=== PATIENT | female | born 1950 | race Caucasian/White ===

== ENCOUNTER 2022-08-28 06:50 | Emergency (ER) | payer MEDICARE, SELFPAY ==
[2022-08-28 06:50] VITALS: BP 148/85; PULSE 112; RESP 18; TEMP 36.4; O2SAT 95; BMI 23.9
[2022-08-28 07:39] LABS: Add Manual Diff / Slide Review NO; Basophils Absolute Auto 100 /uL (0-100); Basophils Percent Auto 0.7 % (0-2); Eosinophils Absolute Auto 0 /uL (0-450); Eosinophils Percent Auto 0.1 % (2-4); Hemoglobin 14.3 g/dL (12.0-16.0); Lymphocytes Absolute Auto 900 /uL (1100-4500); Lymphocytes Percent Auto 6.7 % (25-40); Mean Corpuscular HGB Conc 34.1 % (30-36); Mean Corpuscular Hemoglobin 30.4 PG (26-34); Monocytes Absolute Auto 800 /uL (0-900); Neutrophils Absolute Auto 11800 /uL (1500-7000); Neutrophils Percent Auto 86.5 % (50-75); Platelet Count 280 X10^3/uL (150-400); Red Blood Cell Count 4.72 X10^6/uL (4.0-5.2); Red Cell Distribution Width 14.8 % (11.6-14.8); White Blood Cell Count 13.6 X10^3/uL (4.5-11.0)
[2022-08-28 07:47] LABS: Alanine Aminotransferase 32 IU/L (<35); Albumin Globulin Ratio 0.9 (1.0-2.8); Alkaline Phosphatase 80 U/L (38-126); Aspartate Aminotransferase 40 IU/L (14-36); BUN Creatinine Ratio 23.9 (6-22); Bilirubin Total 0.4 mg/dL (0.2-1.3); Blood Urea Nitrogen 16 mg/dL (7-17); Carbon Dioxide 20 mmol/L (22-32); Chloride 101 mmol/L (98-107); Estimated Glomerular Filt Rate > 60 mL/min (>60); Globulin 3.4 g/dL (1.7-4.1); Glucose 111 mg/dL (80-110); Lipase 35 U/L (23-300); Sodium 133 mmol/L (137-145); Total Protein 6.4 g/dL (6.3-8.2)
[2022-08-28 07:57] LABS: HEMOLYSIS 17 (0-50)
[2022-08-28 07:59] LABS: Potassium 2.6 mmol/L (3.4-5.1)
--- NOTE | 2022-08-28 07:59 | ED_ITS ---
HPI - Fall General Chief Complaint: Fall Stated Complaint: GLF- back pain Time Seen by Provider: 08/28/22 07:59 Source: patient Mode of arrival: EMS Limitations: no limitations History of Present Illness HPI Narrative: This is a 71-year-old female who denies chronic medical issues. She states that she was stepping off a curb or step misstepped and fell backwards onto her left side. Patient states she fell to her side and not straight back. She denies hitting her head she denies neck or back pain. She describes pain in her SI joint/sacral area. She states that she stood at the scene with EMS which was not painful but she did not ambulate. She states it is painful but not significantly so. She has broken her tailbone before and was concerned she may have broken it again. She denies numbness, tingling or pain radiating down her legs. No loss of bowel or bladder control. She denies chest pain or shortness of breath, no nausea or vomiting. She notes she is had diarrhea for the past 2 weeks with no black or bloody stools. Patient denies surgeries, she has had a scope before. She states she is allergic to penicillin. Related Data Previous Rx's Medication Instructions Recorded oxycodone 5 mg tablet 5 mg PO Q6H PRN pain #10 tabs 08/28/22 potassium chloride 20 mEq 40 meq PO DAILY #4 tabs 08/28/22 tablet,extended release Allergies Allergy/AdvReac Type Severity Reaction Status Date / Time Penicillins Allergy Verified 08/28/22 06:50 Review of Systems Review of Systems ROS Unobtainable: All systems reviewed & are unremarkable except as noted in HPI and below Patient History Social History Smoking Status: Current every day smoker Smoking Status: Current every day smoker Substance Use Type: does not use Exam Narrative Exam Narrative: GEN: Patient appears in mild distress. HEAD: No evidence of trauma, no raccoon/Gonzalez sign. NECK: Nontender, painless range of motion, trachea midline Negative Nexus criteria, there is no midline line tenderness, distracting injury, altered mental status, neuro deficit, recent EtOH. EYES: PERRLA, EOMI ENT: External inspection normal, trachea is midline, Nares are clear, no septal hematoma, no dental or oral injury, airway is normal and with normal occlusion, No bony tenderness RESP: Chest is nontender and has symmetric movement, no ecchymosis, breath sounds are normal no crackles, wheezes or rales CVS: Heart sounds are normal, no murmur noted, No JVD. ABG/GI: Nontender, soft, normal bowel sounds, no distention, no organomegaly, pelvic rock is negative NEURO: Oriented AOx3, neuro is grossly intact, sensation and motor is normal all 4 extremities moving, cranial nerves II through XII are intact, GCS is 15 PSYCH: Normal mood and affect SKIN: Intact, warm and dry, no crepitus and without decubitus BACK: No CVA tenderness, no vertebral tenderness, no step-off's, no crepitus, patient does not have any clear reproducible pain for myself. She has full range of motion of her lower extremities, 5/5 muscle strength. EXT: Atraumatic, hips are nontender, no pedal edema, normal color and temperature, normal range of motion of extremities with normal tendon exam, 2+ pulses in all four extremities Initial Vital Signs Initial Vital Signs: Vital Signs Temperature 97.5 F L 08/28/22 06:50 Pulse Rate 112 H 08/28/22 06:50 Respiratory Rate 18 08/28/22 06:50 Blood Pressure 148/85 H 08/28/22 06:50 Pulse Oximetry 95 08/28/22 06:50 Oxygen Delivery Method 08/28/22 06:50 Scores GCS [place] coma scale eye opening: Spontaneous Wolf coma scale verbal response: Orientated Wolf coma scale motor response: Obey commands Wolf coma scale total score: 15 Nexus Score for C-Spine Focal Neurologic deficit present: No Midline spinal tenderness present: No Altered level of conciousness present: No Intoxication present: No Distracting Injury Present: No Nexus Criteria for C-spine: 0 Course Orders Ordered: Discontinued Medications Hydrocodone Bitart/Acetaminophen (Hydrocodone/Acet 5/325 Tablet) 1 tab PO NOW ONE Stop: 08/28/22 08:07 Last Admin: 08/28/22 08:12 Dose: 1 tab Documented By: MATIAS Ondansetron HCl (Ondansetron 4 Mg Odt) 4 mg PO NOW ONE Stop: 08/28/22 07:07 Last Admin: 08/28/22 08:11 Dose: Not Given Documented By: MATIAS Ondansetron HCl (Ondansetron 4 Mg/2 Ml Inj) 4 mg IV NOW ONE Stop: 08/28/22 07:07 Last Admin: 08/28/22 08:11 Dose: Not Given Documented By: MATIAS Potassium Chloride (Potassium Chloride 20 Meq Tab) 40 meq PO NOW ONE Stop: 08/28/22 08:00 Last Admin: 08/28/22 08:12 Dose: 40 meq Documented By: MATIAS Vital Signs Vital signs: Vital Signs - 8 hr 08/28/22 06:50 08/28/22 08:13 08/28/22 08:45 Temperature 97.5 F L Pulse Rate 112 H 96 H 97 H Respiratory Rate 18 20 Blood Pressure 148/85 H Pulse Oximetry 95 94 95 Oxygen Delivery Method Room Air 08/28/22 09:00 Temperature Pulse Rate 91 H Respiratory Rate 22 Blood Pressure Pulse Oximetry 94 Oxygen Delivery Method - Fall Lab Data Result diagrams: 08/28/22 07:05 08/28/22 07:05 Labs: Lab Results 08/28/22 08/28/22 Range/Units 07:05 07:05 WBC 13.6 H (4.5-11.0) X10^3/uL RBC 4.72 (4.0-5.2) X10^6/uL Hgb 14.3 (12.0-16.0) g/dL Hct 42.0 (36-46) % MCV 89.0 (80-100) fL MCH 30.4 (26-34) PG MCHC 34.1 (30-36) % RDW 14.8 (11.6-14.8) % Plt Count 280 (150-400) X10^3/uL Neut % (Auto) 86.5 H (50-75) % Lymph % (Auto) 6.7 L (25-40) % [place] % (Auto) 6.0 (3-14) % Eos % (Auto) 0.1 L (2-4) % Baso % (Auto) 0.7 (0-2) % Neut # (Auto) 37927 H (3789-0032) /uL Lymph # (Auto) 900 L (3138-2422) /uL [place] # (Auto) 800 (0-900) /uL Eos # (Auto) 0 (0-450) /uL Baso # (Auto) 100 (0-100) /uL Sodium 133 L (137-145) mmol/L Potassium 2.6 L* (3.4-5.1) mmol/L Chloride 101 (98-107) mmol/L Carbon Dioxide 20 L (22-32) mmol/L BUN 16 (7-17) mg/dL Creatinine 0.67 (0.52-1.04) mg/dL Estimated GFR > 60 (>60) mL/min BUN/Creatinine Ratio 23.9 H (6-22) Glucose 111 H (80-110) mg/dL Calcium 8.0 L (8.4-10.2) mg/dL Total Bilirubin 0.4 (0.2-1.3) mg/dL AST 40 H (14-36) IU/L ALT 32 (<35) IU/L Alkaline Phosphatase 80 (38-126) U/L Total Protein 6.4 (6.3-8.2) g/dL Albumin 3.0 L (3.5-5.0) g/dL Globulin 3.4 (1.7-4.1) g/dL Albumin/Globulin Ratio 0.9 L (1.0-2.8) Lipase 35 (23-300) U/L Imaging Data pelvic xray: Radiologist's Impression: [address] [address] XRay Report Signed Patient: Shirley Hearn MR#: [id number] : 1950 Acct:[id number] Age/Sex: 71 / F Date of Service: 08/28/22 Loc: ED Accession Number: [id number] ?? Procedure: XR pelvis 1-2V Ordering Provider: Anita Multani D.O. PROCEDURE:? XR PELVIS 1-2V ? INDICATIONS:? fell on bottom, right upper si pain ? TECHNIQUE:? 1 view(s) of the pelvis acquired.? ? COMPARISON:? None. ? FINDINGS:? ? Bones:? No fractures or dislocations.? No suspicious bony lesions.? ? Soft tissues:? Visualized bowel gas pattern is normal.? No suspicious soft tissue calcifications.? ? IMPRESSION:? No evidence acute bony abnormality of the pelvis. ? If clinical suspicion and/or symptoms persist, further assessment with repeat plain films, or advanced imaging (e.g., CT, MRI, or bone scan) may be helpful for further assessment. ? Dictated by: Harpreet Canales M.D. on 08/28/2022 at 8:47 ? ? Approved by: Harpreet Canales M.D. on 08/28/2022 at 8:48? sacrum xray: Radiologist's Impression: [address] [address] XRay Report Signed Patient: Shirley Hearn MR#: [id number] : 1950 Acct:[id number] Age/Sex: 71 / F Date of Service: 08/28/22 Loc: ED Accession Number: [id number] ?? Procedure: XR sacrum coccyx min 2V Ordering Provider: Anita Multani D.O. PROCEDURE:? XR SACRUM COCCYX MIN 2V ? INDICATIONS:? fell on bottom, right upper si pain ? TECHNIQUE:? 3 views of the sacrum and coccyx acquired.? ? COMPARISON:? None. ? FINDINGS:? ? Bones:? No fractures or dislocations.? No suspicious bony lesions.? ? Soft tissues:? Visualized bowel gas pattern is normal.? No suspicious soft tissue densities.? ? IMPRESSION:? No evidence of acute fracture of the sacrum and coccyx.? ? ? Dictated by: Harpreet Canales M.D. on 08/28/2022 at 8:46 ? ? Approved by: Harpreet Canales M.D. on 08/28/2022 at 8:47?? ECG Data Attestation: I personally reviewed and interpreted this ECG as follows: Prior ECG tracings: not available for review Interpretation: Sinus rhythm premature atrial complexes rate of 98 ME 184 QRS of 108 QTC 551. Patient appears to have atrial enlargement, Q-waves in 2 3 AVF.. No elevation or depression appreciated. No priors. MDM Narrative Medical decision making narrative: This is a 71-year-old female with ground level fall after missing a step. Her exam overall is reassuring but she does describe pain in the sacral region pelvic x-ray sacrum was ordered. Patient had labs obtained she is had chronic diarrhea no black or bloody stools no abdominal pain but was found have a potassium was 2.6 likely from her diarrhea, white count is 13.6, no other gerson ctrolyte or renal changes besides a slightly low. Patient and I discussed getting a stool sample to send for GI panel. Imaging shows no acute fracture. Patient ambulating in the department with walker. She is open to taking 1 home. Plan for Tylenol for pain, oxycodone as needed as needed. Discussed about doing a stool sample through primary care if persisting and 2 extra doses of potassium. Patient and family aware that diarrhea causes potassium loss. She was unable to give a sample here. Return precautions. Discharge Plan Departure Patient Disposition: Home Clinical Impression: Fall, Back pain, sacroiliac, Hypokalemia Activity Restrictions/Additional Instructions: Please follow-up for recheck if your symptoms are not improving over the next week. I would ask that you follow-up with her physician for recheck of your potassium level if your continuing to have diarrhea through the week. Your x-ray findings today are negative. You do have low potassium this is likely from your frequent diarrhea. I would recommend following up with your physician for GI panel. Please take an extra dose of potassium this evening. You may take Tylenol 1000 mg every 6 hours as needed for pain. If in adequate take 1 tablet of oxycodone every 6 hours as needed. This medication can make you sleepy do not drive, perform hazardous activities or make any major decisions while taking it. This medication will make you constipated please take a stool softener once to twice daily until stools are soft and regular. Prescription sent to [facility] in [place]. Please return for rapidly worsening pain, inability to walk, loss of bowel or bladder control, lightheadedness or passing out, new chest pain or shortness of breath, black or bloody stools, persistent vomiting or other new or concerning changes. Prescriptions: New potassium chloride 20 mEq tablet extended release 40 meq PO DAILY Qty: 4 0RF oxycodone 5 mg tablet 5 mg PO Q6H PRN (Reason: pain) Qty: 10 0RF Referrals: Miscellaneous,Doctor, MD [Primary Care Provider] - Visit Report Forms: Patient Portal/API
--- NOTE | 2022-08-28 08:06 | DI.RAD.S_ITS ---
PROCEDURE: XR PELVIS 1-2V INDICATIONS: fell on bottom, right upper si pain TECHNIQUE: 1 view(s) of the pelvis acquired. COMPARISON: None. FINDINGS: Bones: No fractures or dislocations. No suspicious bony lesions. Soft tissues: Visualized bowel gas pattern is normal. No suspicious soft tissue calcifications. IMPRESSION: No evidence acute bony abnormality of the pelvis. If clinical suspicion and/or symptoms persist, further assessment with repeat plain films, or advanced imaging (e.g., CT, MRI, or bone scan) may be helpful for further assessment. Dictated by: Harpreet Canales M.D. on 08/28/2022 at 8:47 Approved by: Harpreet Canales M.D. on 08/28/2022 at 8:48
--- NOTE | 2022-08-28 08:06 | DI.RAD.S_ITS ---
PROCEDURE: XR SACRUM COCCYX MIN 2V INDICATIONS: fell on bottom, right upper si pain TECHNIQUE: 3 views of the sacrum and coccyx acquired. COMPARISON: None. FINDINGS: Bones: No fractures or dislocations. No suspicious bony lesions. Soft tissues: Visualized bowel gas pattern is normal. No suspicious soft tissue densities. IMPRESSION: No evidence of acute fracture of the sacrum and coccyx. Dictated by: Harpreet Canales M.D. on 08/28/2022 at 8:46 Approved by: Harpreet Canales M.D. on 08/28/2022 at 8:47
[2022-08-28] MEDS: HYDROCODONE/ACET 5/325 TABLET 1 TAB PO (08:12)
[2022-08-28] MEDS: POTASSIUM CHLORIDE 20 MEQ TAB 40 MEQ PO (08:12)
[2022-08-28 08:13] VITALS: PULSE 96; O2SAT 94
[2022-08-28 08:45] VITALS: PULSE 97; RESP 20; O2SAT 95
[2022-08-28 09:00] VITALS: PULSE 91; RESP 22; O2SAT 94
[2022-08-28 09:31] VITALS: PULSE 96; O2SAT 96
[2022-08-28 09:32] VITALS: BP 151/78; PULSE 93; RESP 25; O2SAT 96
== END 2022-08-28 09:49 | disposition home or self-care (01) ==
PROVIDERS: Emergency Medicine; Emergency Provider Emergency Medicine
DX: M53.3 Sacrococcygeal disorders, not elsewhere classified (principal); E87.6 Hypokalemia; R07.9 Chest pain, unspecified; W18.30XA Fall on same level, unspecified, initial encounter
CPT/HCPCS: 36415; 72170; 72220; 80053; 83690; 85025; 93005; 99283; 99284

== ENCOUNTER 2022-09-13 03:40 | Emergency (ER) | payer MEDICARE, SELFPAY ==
[2022-09-13] VITALS (13 sets, daily range): BP systolic 118–148; BP diastolic 63–81; PULSE 104–121; RESP 18; O2SAT 94–99; BMI 23.9
--- NOTE | 2022-09-13 03:45 | DI.RAD.S_ITS ---
PROCEDURE: XR HIP W PEL IF DONE RT 2V INDICATIONS: fall TECHNIQUE: AP pelvis with lateral view(s) of the right hip(s). COMPARISON: None. FINDINGS: Bones: No fractures or dislocations. Bilateral hip joint osteoarthritic changes are seen with joint space narrowing and subchondral sclerosis. No evidence of avascular necrosis of femoral heads. Pelvic ring appears intact. No suspicious bony lesions. Soft tissues: The visualized bowel gas pattern is normal. No suspicious soft tissue calcifications. IMPRESSION: Bilateral hip joint osteoarthritis. No acute right hip fracture or dislocation. No evidence of avascular necrosis. No discrepancies. Dictated by: Horacio Ocasio M.D. on 09/13/2022 at 8:13 Approved by: Horacio Ocasio M.D. on 09/13/2022 at 8:13
--- NOTE | 2022-09-13 03:47 | ED.GENADULT ---
HPI - General Adult General Chief complaint: Fall Stated complaint: GLF w/ right hip pain Time Seen by Provider: 09/13/22 03:40 History of Present Illness HPI narrative: 71-year-old woman who denies any significant medical issues presents complaining of increasing weakness over the last 2 days to the point that she was so weak when she went to step up a small step into her bathroom she simply was unable to hold herself up and fell landing on her right hip. She is not on blood thinners, she did not hit her head, there was no loss of consciousness. She states that aside from the global weakness he has not had significant fevers, cough, chills, abdominal pain, vomiting, diarrhea. She is had no palpitations and no headaches. She was seen in the emergency department on August 28 after a mechanical ground level fall with no significant injuries noted at that time. Related Data Previous Rx's Medication Instructions Recorded oxycodone 5 mg tablet 5 mg PO Q6H PRN pain #10 tabs 08/28/22 potassium chloride 20 mEq 40 meq PO DAILY #4 tabs 08/28/22 tablet,extended release oxycodone-acetaminophen 5 mg-325 1 tab PO Q6H PRN pain #10 tabs 09/13/22 mg tablet Allergies Allergy/AdvReac Type Severity Reaction Status Date / Time Penicillins Allergy Verified 08/28/22 06:50 Review of Systems Review of Systems Narrative: Remainder of complete review of systems is otherwise unremarkable except for that included in the HPI. Patient History Social History Smoking Status: Current every day smoker Smoking Status: Current every day smoker Substance Use Type: does not use Exam Initial Vital Signs Initial Vital Signs: Vital Signs Pulse Rate 109 H 09/13/22 03:50 Respiratory Rate 18 09/13/22 03:50 Blood Pressure 143/80 H 09/13/22 03:50 Pulse Oximetry 99 09/13/22 03:50 Oxygen Delivery Method 09/13/22 03:50 General: Frail-appearing but in no acute distress. Able to give a complete and coherent history. Well-nourished well-developed HEENT: Moist mucous membranes, normal sclera with reactive pupils, head is atraumatic Neck: No midline cervical spine tenderness, supple Respiratory: Lungs are clear to auscultation, no wheezing no rales no rhonchi. Full and symmetrical air movement Cardiac: Regular rate and rhythm no murmurs no bruits Abdomen: Soft, mildly distended, nontender, no rebound, no guarding, hyperactive bowel tones, no flank pain Skin: Warm and dry, no rashes, no bruises, abrasions or skin tears Neurologic: Globally weak but Grossly neurologically intact with no obvious asymmetries or abnormalities Extremities: She is complaining of right ischial tuberosity pain. She has some mild pain with her hip significantly flexed and slightly abducted. No bony tenderness along the leg itself. No groin pain. She has no tenderness along the upper pelvic ring and no lumbar or thoracic spine tenderness Psych: Cooperative, appropriate insight and affect Course Orders Ordered: ED Orders 09/13/22 03:45 XR hip w pel if done RT 2V Stat 09/13/22 03:55 Complete Blood Count AUTO DIFF Stat Comprehensive Metabolic Panel Stat 09/13/22 04:20 Respiratory Panel (Film Array) Stat Discontinued Medications Sodium Chloride (Normal Saline 0.9%) 1,000 mls @ 1,000 mls/hr IV BOLUS ONE Stop: 09/13/22 04:44 Last Infusion: 09/13/22 06:44 Dose: 0 mls/hr Documented By: Admin: 09/13/22 04:25 Dose: 1,000 mls/hr Documented By: ROOSEVELT Vital Signs Vital signs: Vital Signs - 8 hr 09/13/22 03:50 09/13/22 04:18 09/13/22 04:19 Pulse Rate 109 H 119 H 121 H Respiratory Rate 18 Blood Pressure 143/80 H Pulse Oximetry 99 95 95 Oxygen Delivery Method Room Air 09/13/22 04:19 09/13/22 04:30 09/13/22 04:30 Pulse Rate 108 H Respiratory Rate Blood Pressure 139/81 135/69 Pulse Oximetry 94 Oxygen Delivery Method 09/13/22 05:00 09/13/22 05:00 09/13/22 05:30 Pulse Rate 104 H Respiratory Rate Blood Pressure 136/68 148/67 H Pulse Oximetry 95 Oxygen Delivery Method 09/13/22 05:30 09/13/22 06:00 09/13/22 06:01 Pulse Rate 111 H 105 H Respiratory Rate Blood Pressure 132/68 Pulse Oximetry 95 94 Oxygen Delivery Method 09/13/22 06:01 12/07/22 06:30 09/13/22 06:30 Pulse Rate 110 H 107 H Respiratory Rate Blood Pressure 123/72 Pulse Oximetry 96 95 Oxygen Delivery Method Medical Decision Making Lab Data Result diagrams: 09/13/22 03:55 09/13/22 03:55 Labs: Lab Results 09/13/22 09/13/22 09/13/22 Range/Units 03:55 03:55 04:20 WBC 7.0 (4.5-11.0) X10^3/uL RBC 4.77 (4.0-5.2) X10^6/uL Hgb 15.0 (12.0-16.0) g/dL Hct 43.6 (36-46) % MCV 91.4 (80-100) fL MCH 31.5 (26-34) PG MCHC 34.4 (30-36) % RDW 15.9 H (11.6-14.8) % Plt Count 799 H (150-400) X10^3/uL Neut % (Auto) 61.3 (50-75) % Lymph % (Auto) 25.2 (25-40) % [place] % (Auto) 11.6 (3-14) % Eos % (Auto) 0.9 L (2-4) % Baso % (Auto) 1.0 (0-2) % Neut # (Auto) 4300 (6858-6429) /uL Lymph # (Auto) 1800 (5631-6054) /uL [place] # (Auto) 800 (0-900) /uL Eos # (Auto) 100 (0-450) /uL Baso # (Auto) 100 (0-100) /uL Platelet Estimate Increased on smear RBC Morphology Not Reportable Sodium 137 (137-145) mmol/L Potassium 3.9 (3.4-5.1) mmol/L Chloride 107 (98-107) mmol/L Carbon Dioxide 19 L (22-32) mmol/L BUN 23 H (7-17) mg/dL Creatinine 0.66 (0.52-1.04) mg/dL Estimated GFR > 60 (>60) mL/min BUN/Creatinine Ratio 34.8 H (6-22) Glucose 110 (80-110) mg/dL Calcium 8.6 (8.4-10.2) mg/dL Total Bilirubin 0.7 (0.2-1.3) mg/dL AST 25 (14-36) IU/L ALT 30 (<35) IU/L Alkaline Phosphatase 190 H (38-126) U/L Total Protein 7.3 (6.3-8.2) g/dL Albumin 3.5 (3.5-5.0) g/dL Globulin 3.8 (1.7-4.1) g/dL Albumin/Globulin Ratio 0.9 L (1.0-2.8) Chlamy pneumoniae PCR Not detected (Not Detect) Adenovirus (PCR) Not detected (Not Detect) B. pertussis DNA (PCR) Not detected (Not Detecte) B.parapertussis DNA PCR Not detected (Not Detecte) Coronavirus OC43 (PCR) Not detected (Not Detect) Coronavirus HKU1 (PCR) Not detected (Not Detect) Coronavirus 229E (PCR) Not detected (Not Detect) SARS-CoV-2 (PCR) Not detected (Not Detecte) Coronavirus NL63 (PCR) Not detected (Not Detect) Human Metapneumovir PCR Not detected (Not Detect) Influenza Type A (PCR) Not detected (Not Detect) Influenza Type B (PCR) Not detected (Not Detect) M. pneumoniae (PCR) Not detected (Not Detect) Parainfluenza 1 (PCR) Not detected (Not Detect) Parainfluenza 2 (PCR) Not detected (Not Detect) Parainfluenza 3 (PCR) Not detected (Not Detect) Parainfluenza 4 (PCR) Not detected (Not Detect) RSV (PCR) Not detected (Not Detect) Entero/Rhino (PCR) Not detected (Not Detect) Imaging Data XR hip: Radiologist's Impression: No acute bony injury Germaine Dai MD MDM Narrative Medical decision making narrative: 71-year-old woman who presents complaining of increasing weakness over the last 2 days with normal lab work, no evidence of infection, acute myocardial infarction, stroke, acute viral etiology l as evidenced on the respiratory panel. No evidence of urinary tract infection or alternate explanation. She did fall and was complaining of some mild hip pain with normal x-ray. On re-evaluation she is complaining of some musculoskeletal type pain in the past has done well with the brief prescription of oxycodone and she would like to repeat this again. She has had issues with both diarrhea and constipation in the past and recognizes that using MiraLax with the narcotic will be quite helpful. She has a right available to come pick her up and at this point she is safe for discharge home Discharge Plan Departure Patient Disposition: Home Clinical Impression: Fall from ground level Contusion of hip Qualifiers: Encounter type: initial encounter Laterality: right Qualified Code(s): S70.01XA - Contusion of right hip, initial encounter Instructions: DI for Contusion Activity Restrictions/Additional Instructions: Thank you for coming in today I am sorry that you fell. I am pleased that you did not actually break anything. You can use 1-2 Percocet every 6 hours as needed for pain. I would expect to be tender over the next 1-2 days with improving after that. Ice may be helpful. You can also use 400 mg of ibuprofen every 6 hours. Prescription was electronically transmitted to [facility] in [place]. I did look for reasons to explain your increased weakness or other explanations to explain why he might have fallen. I did not find anything life-threatening. There is no evidence of acute heart attack, stroke, sepsis, viral infection or significant electrolyte abnormalities. The side that is safe. I go home. I hope that you continue to heal completely and that your pain is able to be controlled. If you find that you are getting worse or develop any new symptoms, please feel free to return to the emergency department for further evaluation. Prescriptions: New oxycodone-acetaminophen 5-325 mg tablet 1 tab PO Q6H PRN (Reason: pain) Qty: 10 0RF No Action potassium chloride 20 mEq tablet extended release 40 meq PO DAILY Qty: 4 0RF oxycodone 5 mg tablet 5 mg PO Q6H PRN (Reason: pain) Qty: 10 0RF Referrals: Miscellaneous,Doctor, [Primary Care Provider] -
[2022-09-13 04:19] LABS: Alanine Aminotransferase 30 IU/L (<35); Albumin 3.5 g/dL (3.5-5.0); Albumin Globulin Ratio 0.9 (1.0-2.8); Alkaline Phosphatase 190 U/L (38-126); Aspartate Aminotransferase 25 IU/L (14-36); BUN Creatinine Ratio 34.8 (6-22); Bilirubin Total 0.7 mg/dL (0.2-1.3); Blood Urea Nitrogen 23 mg/dL (7-17); Calcium 8.6 mg/dL (8.4-10.2); Carbon Dioxide 19 mmol/L (22-32); Chloride 107 mmol/L (98-107); Estimated Glomerular Filt Rate > 60 mL/min (>60); Globulin 3.8 g/dL (1.7-4.1); Glucose 110 mg/dL (80-110); HEMOLYSIS < 15 (0-50); Potassium 3.9 mmol/L (3.4-5.1); Sodium 137 mmol/L (137-145); Total Protein 7.3 g/dL (6.3-8.2)
[2022-09-13 04:21] LABS: Basophils Absolute Auto 100 /uL (0-100); Eosinophils Absolute Auto 100 /uL (0-450); Eosinophils Percent Auto 0.9 % (2-4); Hematocrit 43.6 % (36-46); Lymphocytes Absolute Auto 1800 /uL (1100-4500); Lymphocytes Percent Auto 25.2 % (25-40); Mean Corpuscular HGB Conc 34.4 % (30-36); Mean Corpuscular Hemoglobin 31.5 PG (26-34); Mean Corpuscular Volume 91.4 fL (80-100); Monocytes Absolute Auto 800 /uL (0-900); Monocytes Percent Auto 11.6 % (3-14); Neutrophils Absolute Auto 4300 /uL (1500-7000); Neutrophils Percent Auto 61.3 % (50-75); Platelet Count 799 X10^3/uL (150-400); Red Blood Cell Count 4.77 X10^6/uL (4.0-5.2); Red Cell Distribution Width 15.9 % (11.6-14.8)
[2022-09-13 04:22] LABS: Add Manual Diff / Slide Review SLIDE REVIEW
[2022-09-13] MEDS: SODIUM CHLORIDE 0.9% 1,000 ML 1000 ML IV (04:25)
[2022-09-13 05:31] LABS: Adenovirus Not Detected (Not Detect); Coronavirus 229E Not Detected (Not Detect); Coronavirus HKU1 Not Detected (Not Detect); Coronavirus NL 63 Not Detected (Not Detect); Coronavirus OC43 Not Detected (Not Detect); Human Metapneumovirus Not Detected (Not Detect); Human Rhinovirus/Enterovirus Not Detected (Not Detect); Influenza A Not Detected (Not Detect); Influenza B Not Detected (Not Detect); Parainfluenza Virus 1 Not Detected (Not Detect); Parainfluenza Virus 2 Not Detected (Not Detect); Parainfluenza Virus 3 Not Detected (Not Detect); Parainfluenza Virus 4 Not Detected (Not Detect); SARS- CoV-2 Not Detected (Not Detecte)
[2022-09-13 05:32] LABS: B. parapertussis Not Detected (Not Detecte); Bordetella pertussis Not Detected (Not Detecte); Chlamydophila pneumoniae Not Detected (Not Detect); Mycoplasma pneumoniae Not Detected (Not Detect); Respiratory Syncytial Virus Not Detected (Not Detect)
[2022-09-13 07:15] LABS: Platelet Estimate Increased on smear
== END 2022-09-13 08:29 | disposition home or self-care (01) ==
PROVIDERS: Emergency Provider Emergency Medicine
DX: S70.01XA Contusion of right hip, initial encounter (principal); W18.30XA Fall on same level, unspecified, initial encounter
CPT/HCPCS: 36415; 73502; 80053; 85025; 87633; 96360; 96361; 99284

== ENCOUNTER 2022-09-22 13:10 | Inpatient (IN) | payer MEDICARE, SELFPAY ==
[2022-09-22] VITALS (23 sets, daily range): BP systolic 128–171; BP diastolic 65–91; PULSE 104–119; RESP 19–38; TEMP 37; O2SAT 95–97; BMI 23.9
--- NOTE | 2022-09-22 13:19 | DI.CT.S_ITS ---
PROCEDURE: CT ABDOMEN PELVIS W CON INDICATIONS: abdominal pain, n/v/d TECHNIQUE: After the administration of oral and IV contrast, axial sections were acquired from the lung bases to the pubic symphysis. Coronal and sagittal reformats were performed. For radiation dose reduction, the following was used: automated exposure control, adjustment of mA and/or kV according to patient size. COMPARISON: [facility], CR, XR PELVIS 1-2V, 08/28/2022, 8:31. FINDINGS: Image quality: Excellent. Lung bases: Left basilar scars and atelectasis. Heart: No significant findings. ABDOMEN: Liver: Unremarkable. Gallbladder: Gallbladder is grossly abnormal with diffuse calcification of the gallbladder wall. There may be gallstones. The cystic duct is dilated. Biliary ducts: Common bile duct is dilated measuring up to 15 mm in diameter. Pancreas: Unremarkable. Spleen: Unremarkable. Adrenal Glands: Unremarkable. Kidneys and Ureters: Kidneys are normal in size. There is bilateral cortical thinning. Numerous low-density cortical nodules are seen, most likely cysts. Calcific foci in renal lexie may be nonobstructive calculi or vascular calcifications. No hydronephrosis. Stomach and Bowel: There is segmental wall thickening involving the distal descending colon and proximal sigmoid colon. A few colonic diverticula are present. There is partial colonic obstruction with dilated proximal colon loops measuring up to 5.5 cm and multiple air fluid levels in ascending and transverse colon. Small bowel loops also dilated measuring up to 4.1 cm in diameter. There is small bowel wall thickening involving jejunum. Peritoneum: A small amount of free fluid is seen adjacent to the liver and in the pelvis. There is subtle enhancement along the deep peritoneal reflection in pelvic, which suggest early abscess formation. No free air. Ventral Wall: No hernia. Abdominal Nodes: No retroperitoneal or mesenteric adenopathy by size criteria. Vessels: Aorta and inferior vena cava are normal in size. Severe atherosclerotic calcifications. PELVIS: Pelvic Organs: Unremarkable. Bladder: Unremarkable. Pelvic Nodes: No enlarged lymph nodes. Miscellaneous: No inguinal hernias are seen. Bones: Unremarkable. Degenerative changes are noted. IMPRESSION: 1. There is segmental wall thickening of the distal descending colon and proximal sigmoid colon suggesting the possibility of a mass. A differential diagnosis is chronic inflammatory process such as chronic diverticulitis or segmental colitis. There is partial distal colonic obstruction with dilated proximal colon and small bowel loops. 2. The base of the appendix is normal in caliber. The tip of the appendix is adjacent to the sigmoid colon and demonstrates mild stranding. The finding may be secondary to direct spread of inflammation/infection to the tip of the appendix. Alternatively, concomitant appendicitis is a differential diagnosis. 3. There is segmental thickening of jejunum. Etiology may be inflammatory bowel disease or infection. 4. Porcelain gallbladder. The cystic duct is dilated, as well as common bile duct. No obstructive stones are seen. 5. There is a small amount of ascites. The result was discussed with Dr. Mcbride prior to dictation. Dictated by: Kay Arizmendi M.D. on 09/22/2022 at 13:58 Approved by: Kay Arizmendi M.D. on 09/22/2022 at 14:38
--- NOTE | 2022-09-22 13:21 | ED.ABDPAIN ---
HPI - Abdominal Pain General Chief Complaint: Abdominal Pain Stated Complaint: Abdominal Pain History of Present Illness HPI narrative: 72-year-old female presenting with abdominal pain, nausea, vomiting, diarrhea, and low-grade fevers. Patient reports several days of symptoms. Pain localized to the lower abdomen about the suprapubic area/left lower quadrant, not clearly radiating, moderate to severe when present, patient received fentanyl EN route via medics, pain is minimal on presentation to the emergency department. No measured fevers prior to arrival. No chest pain or shortness of breath. No recent surgical procedures. No obvious blood per rectum. Related Data Previous Rx's Medication Instructions Recorded oxycodone 5 mg tablet 5 mg PO Q6H PRN pain #10 tabs 08/28/22 potassium chloride 20 mEq 40 meq PO DAILY #4 tabs 08/28/22 tablet,extended release oxycodone-acetaminophen 5 mg-325 1 tab PO Q6H PRN pain #10 tabs 09/13/22 mg tablet Allergies Allergy/AdvReac Type Severity Reaction Status Date / Time Penicillins Allergy Verified 09/22/22 13:20 Review of Systems Review of Systems Narrative: Constitutional, Eyes, ENT, Pulmonary, Cardiovascular, Gastrointestinal, Renal, Endocrine, Genitourinary, Musculoskeletal, Neurologic, Skin, and Psychiatric systems were reviewed and negative unless indicated in the HPI above. Patient History Social History Smoking Status: Current every day smoker Smoking Status: Current every day smoker Substance Use Type: does not use Exam Narrative Exam Narrative: Vitals reviewed. Nursing note reviewed Constitutional: interactive HENT: Moist mucous membranes EYES: No scleral icterus NECK: no masses CV: Well perfused peripherally, no cyanosis present PULM: Unlabored respirations, symmetric chest rise ABD: mildly-distended, moderate tenderness to palpation over the suprapubic and left lower quadrant, no obvious guarding MS: No gross deformities, no asymmetric edema noted SKIN: Warm and dry. PSYCH: Appropriate affect NEURO: Follows simple commands, moves extremities, interactive with exam Initial Vital Signs Initial Vital Signs: Vital Signs Temperature 98.6 F 09/22/22 13:20 Pulse Rate 119 H 09/22/22 13:20 Respiratory Rate 20 09/22/22 13:20 Blood Pressure 146/80 H 09/22/22 13:20 Pulse Oximetry 96 12/16/22 13:20 Oxygen Delivery Method 09/22/22 13:20 Course Orders Ordered: ED Orders 09/22/22 13:14 CBC Auto Diff [Complete Blood Count AUTO DIFF] Stat CMP [Comprehensive Metabolic Panel] Stat Covid-19 + FLU A/B + RSV - PCR Stat Lipase Stat Trop I [Troponin I] Stat 09/22/22 13:19 CT abdomen pelvis w con Stat 09/22/22 13:22 UA Complete [Urinalysis and Microscopic] Stat 09/22/22 13:52 Lactate (Lactic Acid) Stat 09/22/22 14:15 Blood Culture Stat 09/22/22 14:58 EKG-12 Lead Stat Discontinued Medications Hydromorphone HCl (Hydromorphone 0.5 Mg Inj) 0.5 mg IV NOW ONE Stop: 09/22/22 14:24 Last Admin: 09/22/22 14:29 Dose: 0.5 mg Documented By: JANELL Sodium Chloride (Normal Saline 0.9%) 500 mls @ 1,000 mls/hr IV BOLUS ONE Stop: 09/22/22 14:17 Last Infusion: 09/22/22 14:45 Dose: 0 mls/hr Documented By: Admin: 09/22/22 14:03 Dose: 1,000 mls/hr Documented By: SHERIF Ceftriaxone Sodium 2,000 mg/ (Sodium Chloride) 100 mls @ 200 mls/hr IV NOW ONE Stop: 09/22/22 13:49 Last Infusion: 09/22/22 14:45 Dose: 0 mls/hr Documented By: Admin: 09/22/22 14:03 Dose: 200 mls/hr Documented By: SHERIF Metronidazole (Flagyl) 500 mg in 100 mls @ 100 mls/hr IV NOW ONE Stop: 09/22/22 14:47 Last Admin: 09/22/22 14:46 Dose: 100 mls/hr Documented By: JANELL Vital Signs Vital signs: Vital Signs - 8 hr 09/22/22 13:20 09/22/22 13:20 09/22/22 13:30 Temperature 98.6 F Pulse Rate 119 H 119 H 114 H Respiratory Rate 20 23 23 Blood Pressure 146/80 H Pulse Oximetry 96 96 96 Oxygen Delivery Method Room Air Room Air 09/22/22 13:44 09/22/22 13:44 09/22/22 14:00 Temperature Pulse Rate 110 H Respiratory Rate 24 Blood Pressure 133/65 152/80 H Pulse Oximetry 96 Oxygen Delivery Method 09/22/22 14:00 Temperature Pulse Rate 105 H Respiratory Rate 24 Blood Pressure Pulse Oximetry 95 Oxygen Delivery Method Room Air MDM - Abdominal Pain Lab Data Result diagrams: 09/22/22 13:14 09/22/22 13:14 Labs: Lab Results 09/22/22 09/22/22 09/22/22 Range/Units 13:14 13:14 13:14 WBC 15.4 H (4.5-11.0) X10^3/uL RBC 4.30 (4.0-5.2) X10^6/uL Hgb 13.2 (12.0-16.0) g/dL Hct 38.9 (36-46) % MCV 90.5 (80-100) fL MCH 30.6 (26-34) PG MCHC 33.8 (30-36) % RDW 16.0 H (11.6-14.8) % Plt Count 408 H (150-400) X10^3/uL Neut % (Auto) 90.6 H (50-75) % Lymph % (Auto) 5.9 L (25-40) % [place] % (Auto) 3.5 (3-14) % Eos % (Auto) 0.0 L (2-4) % Baso % (Auto) 0.0 (0-2) % Neut # (Auto) 26070 H (9625-1994) /uL Lymph # (Auto) 900 L (8352-9742) /uL [place] # (Auto) 500 (0-900) /uL Eos # (Auto) 0 (0-450) /uL Baso # (Auto) 0 (0-100) /uL Sodium 138 (137-145) mmol/L Potassium 3.5 (3.4-5.1) mmol/L Chloride 105 (98-107) mmol/L Carbon Dioxide 22 (22-32) mmol/L BUN 32 H (7-17) mg/dL Creatinine 0.60 (0.52-1.04) mg/dL Estimated GFR > 60 (>60) mL/min BUN/Creatinine Ratio 53.3 H (6-22) Glucose 131 H (80-110) mg/dL Lactate (0.7-2.1) mmol/L Calcium 7.6 L (8.4-10.2) mg/dL Total Bilirubin 0.6 (0.2-1.3) mg/dL AST 17 (14-36) IU/L ALT 16 (<35) IU/L Alkaline Phosphatase 159 H (38-126) U/L Troponin I 0.021 (0.01-0.034) ng/mL Total Protein 5.7 L (6.3-8.2) g/dL Albumin 2.4 L (3.5-5.0) g/dL Globulin 3.3 (1.7-4.1) g/dL Albumin/Globulin Ratio 0.7 L (1.0-2.8) Lipase 22 L (23-300) U/L SARS-CoV-2 (PCR) Negative (Negative) Influenza A (RT-PCR) Flu a negative (NEGATIVE) Influenza B (RT-PCR) Flu b negative (NEGATIVE) RSV (PCR) Negative (Negative) 09/22/22 Range/Units 13:52 WBC (4.5-11.0) X10^3/uL RBC (4.0-5.2) X10^6/uL Hgb (12.0-16.0) g/dL Hct (36-46) % MCV (80-100) fL MCH (26-34) PG MCHC (30-36) % RDW (11.6-14.8) % Plt Count (150-400) X10^3/uL Neut % (Auto) (50-75) % Lymph % (Auto) (25-40) % [place] % (Auto) (3-14) % Eos % (Auto) (2-4) % Baso % (Auto) (0-2) % Neut # (Auto) (7933-6035) /uL Lymph # (Auto) (0298-3092) /uL [place] # (Auto) (0-900) /uL Eos # (Auto) (0-450) /uL Baso # (Auto) (0-100) /uL Sodium (137-145) mmol/L Potassium (3.4-5.1) mmol/L Chloride (98-107) mmol/L Carbon Dioxide (22-32) mmol/L BUN (7-17) mg/dL Creatinine (0.52-1.04) mg/dL Estimated GFR (>60) mL/min BUN/Creatinine Ratio (6-22) Glucose (80-110) mg/dL Lactate 1.0 (0.7-2.1) mmol/L Calcium (8.4-10.2) mg/dL Total Bilirubin (0.2-1.3) mg/dL AST (14-36) IU/L ALT (<35) IU/L Alkaline Phosphatase (38-126) U/L Troponin I (0.01-0.034) ng/mL Total Protein (6.3-8.2) g/dL Albumin (3.5-5.0) g/dL Globulin (1.7-4.1) g/dL Albumin/Globulin Ratio (1.0-2.8) Lipase (23-300) U/L SARS-CoV-2 (PCR) (Negative) Influenza A (RT-PCR) (NEGATIVE) Influenza B (RT-PCR) (NEGATIVE) RSV (PCR) (Negative) MDM Narrative Medical decision making narrative: 72-year-old female presenting with abdominal pain, nausea, vomiting, diarrhea. On presentation, vitals notable for hypertension and tachycardia, afebrile. Physical exam notable for alert interactive 72-year-old female, minimal abdominal tenderness with palpation, reassuring cardiopulmonary exam. Initial concern for acute intra-abdominal pathology including pancreatitis, biliary pathology, appendicitis, viral syndrome, focal bacterial infection, occult sepsis, vascular pathology, occult ACS. Patient denies focal chest pain, shortness of breath, diaphoresis, and EKG reassuring arguing against ACS. Given ongoing influenza surgeon infection, concern for viral syndrome, swab was obtained and pending. Patient treated symptomatically on presentation with IV fluids, IV hydromorphone. Screening labs notable for leukocytosis to 15,000, left shift is present, CMP notable for normal range creatinine. CT imaging obtained and notable for distal colonic obstruction with focal inflammation in the sigmoid colon area. No clear evidence of diverticulitis or abscess, no clear evidence of high-grade small-bowel obstruction. Patient does have air-fluid levels throughout the colon. Discussed case with General surgery, Dr. Reese, agreed with plan for admission to hospital medicine service, non-operative management. Discussed case with hospital medicine service, agreed with plan for admission to facilitate further management. Discharge Plan Departure Prescriptions: No Action potassium chloride 20 mEq tablet extended release 40 meq PO DAILY Qty: 4 0RF oxycodone 5 mg tablet 5 mg PO Q6H PRN (Reason: pain) Qty: 10 0RF oxycodone-acetaminophen 5-325 mg tablet 1 tab PO Q6H PRN (Reason: pain) Qty: 10 0RF Referrals: Miscellaneous,Doctor, [Primary Care Provider] -
[2022-09-22 13:33] LABS: Add Manual Diff / Slide Review NO; Basophils Absolute Auto 0 /uL (0-100); Eosinophils Absolute Auto 0 /uL (0-450); Hematocrit 38.9 % (36-46); Hemoglobin 13.2 g/dL (12.0-16.0); Lymphocytes Absolute Auto 900 /uL (1100-4500); Lymphocytes Percent Auto 5.9 % (25-40); Mean Corpuscular HGB Conc 33.8 % (30-36); Mean Corpuscular Hemoglobin 30.6 PG (26-34); Mean Corpuscular Volume 90.5 fL (80-100); Monocytes Absolute Auto 500 /uL (0-900); Monocytes Percent Auto 3.5 % (3-14); Neutrophils Absolute Auto 13900 /uL (1500-7000); Neutrophils Percent Auto 90.6 % (50-75); Platelet Count 408 X10^3/uL (150-400); White Blood Cell Count 15.4 X10^3/uL (4.5-11.0)
[2022-09-22] MEDS: cefTRIAXone 2,000 MG in SODIUM CHLORIDE 0.9% 100 ML 200 MG IV (14:03)
[2022-09-22] MEDS: SODIUM CHLORIDE 0.9% 500 ML 1000 ML IV (14:03)
[2022-09-22 14:05] LABS: Alanine Aminotransferase 16 IU/L (<35); Albumin 2.4 g/dL (3.5-5.0); Albumin Globulin Ratio 0.7 (1.0-2.8); Alkaline Phosphatase 159 U/L (38-126); Aspartate Aminotransferase 17 IU/L (14-36); BUN Creatinine Ratio 53.3 (6-22); Bilirubin Total 0.6 mg/dL (0.2-1.3); Blood Urea Nitrogen 32 mg/dL (7-17); Calcium 7.6 mg/dL (8.4-10.2); Carbon Dioxide 22 mmol/L (22-32); Chloride 105 mmol/L (98-107); Estimated Glomerular Filt Rate > 60 mL/min (>60); Globulin 3.3 g/dL (1.7-4.1); Glucose 131 mg/dL (80-110); HEMOLYSIS < 15 (0-50); Lipase 22 U/L (23-300); Potassium 3.5 mmol/L (3.4-5.1); Sodium 138 mmol/L (137-145); Total Protein 5.7 g/dL (6.3-8.2)
[2022-09-22 14:14] LABS: Troponin I 0.021 ng/mL (0.01-0.034)
[2022-09-22 14:20] LABS: Influenza A - CEPHEID Flu A NEGATIVE (NEGATIVE); Influenza B - CEPHEID Flu B NEGATIVE (NEGATIVE); Respiratory Syncytial Virus Negative (Negative)
[2022-09-22] MEDS: HYDROMORPHONE 0.5 MG INJ IV ×2 (14:29→19:20)
[2022-09-22 14:30] LABS: COVID-19 CEPHEID 4-PLEX PCR Negative (Negative)
[2022-09-22] MEDS: metroNIDAZOLE 500 MG/100 ML PIGGYBACK 100 MG IV (14:46)
[2022-09-22] MEDS: SODIUM CHLORIDE 0.9% 1,000 ML 100 ML IV (19:54)
--- NOTE | 2022-09-22 20:38 | P.HP_ITS ---
History of Present Illness History of Present Illness Date Patient Seen: 09/22/22 Time Patient Seen: 20:00 Chief complaint: Abdominal Pain Narrative: Shirley Hearn is a 72-year-old female with no stated chronic medical problems presented to the emergency department today with what she describes as weird symptoms of no appetite, diarrhea for 1 week. She states she has not been eating because she does not have an appetite but denies nausea or vomiting. She is a recent transplant from [facility] moving here to be with her daughter, stating that this is the best move she is ever made. She denies fevers sweats or chills although apparently told the ED provider that she had a low-grade fever, denies dysuria, constipation, numbing or tingling of her upper lower extremities. CT of the abdomen and pelvis reported segmental wall thickening involving the distal descending colon and the proximal sigmoid colon noting a few colonic diverticula, it also reported partial colonic obstruction with dilated proximal colon loops measuring 5.5 cm and multiple air-fluid levels in the ascending and transverse colon. Concluded that there was a question as to whether this is chronic diverticulitis/segmental colitis versus mass. Appendix is normal though the tip of the appendix is adjacent to the sigmoid colon and they noted mild stranding with the possibility that she might have a concomitant appendicitis. They also noted a ?porcelain ?gallbladder and a small amount of ascites. She is afebrile, blood pressure 132/81 heart rate 109 respiratory rate 22 oxygen saturation of 96% on room air she weighs 61.2 kg with a BMI of 24. She does have a mildly elevated white count of 15.4 platelet count 408 and a left shift of almost 14,000 BUN was 32 glucose 131 calcium 7.6 alk-phos 159 albumin 2.4 and lipase is low at 22. COVID-19 PCR is negative. Patient History Medical History (Updated 09/22/22 @ 21:16 by YASHIRA Blake) Tobacco dependence Surgical History (Updated 09/22/22 @ 21:16 by YASHIRA Blake) No history of previous surgery Family & Social History Family History (Updated 09/22/22 @ 21:17 by YASHIRA Blake) Father Melanoma Mother Medical history unknown Safety & Behavioral: Feels Safe in Current Yes Environment Tobacco & Substance use: Smoking Status Current every day smoker Substance Use Type does not use Meds Home Medications and Allergies Home Medications Medication Instructions Recorded Confirmed Type oxycodone 5 mg tablet 5 mg PO Q6H PRN pain #10 tabs 08/28/22 Rx potassium chloride 20 mEq 40 meq PO DAILY #4 tabs 08/28/22 Rx tablet,extended release oxycodone-acetaminophen 5 mg-325 1 tab PO Q6H PRN pain #10 tabs 09/13/22 Rx mg tablet Allergies Allergy/AdvReac Type Severity Reaction Status Date / Time Penicillins Allergy Verified 09/22/22 13:20 Review of Systems Review of Systems ROS: Yes All systems reviewed with the patient and are negative except as otherwise documented Exam Vital Signs (past 8 hours): - 09/22/22 13:20 09/22/22 13:20 09/22/22 13:30 Temperature 98.6 F Pulse Rate 119 H 119 H 114 H Respiratory Rate 20 23 23 Blood Pressure 146/80 H Pulse Oximetry 96 96 96 Oxygen Delivery Method Room Air Room Air 09/22/22 13:44 09/22/22 13:44 09/22/22 14:00 Temperature Pulse Rate 110 H Respiratory Rate 24 Blood Pressure 133/65 152/80 H Pulse Oximetry 96 Oxygen Delivery Method 09/22/22 14:00 09/22/22 14:30 09/22/22 14:30 Temperature Pulse Rate 105 H 104 H Respiratory Rate 24 22 Blood Pressure 144/83 H Pulse Oximetry 95 97 Oxygen Delivery Method Room Air Room Air 09/22/22 15:00 09/22/22 15:00 09/22/22 15:30 Temperature Pulse Rate 109 H Respiratory Rate 21 Blood Pressure 143/66 H 129/83 Pulse Oximetry 96 Oxygen Delivery Method 09/22/22 15:30 09/22/22 16:00 09/22/22 16:00 Temperature Pulse Rate 111 H 109 H Respiratory Rate 19 21 Blood Pressure 138/87 Pulse Oximetry 96 96 Oxygen Delivery Method 09/22/22 16:30 09/22/22 16:30 Temperature Pulse Rate 109 H Respiratory Rate 22 Blood Pressure 132/81 Pulse Oximetry Oxygen Delivery Method Oxygen Delivery Method Room Air Narrative Exam Narrative: Gen: Alert, oriented, chronically ill appearing 72 y.o. female, NAD HEENT: normocephalic, atraumatic, conjunctiva clear, sclera non-icteric, oral mucosa pink and moist Neck: supple, full ROM, no JVD, trachea is midline Resp: Lungs CTA, non-labored breathing CV: RRR, no murmur or rubs Abd: soft, non-tender, normoactive BTs Skin: tobacco oils seen on fingernails, no lesions or rashes, dry and intact Neuro: Alert and oriented X 4 w/no focal deficits. Speech clear and coherent. Extremities: moves all 4 extremities, is ambulatory, negative Colby?s sign Psyche: normal mood and affect. Objective Labs Result Diagrams: 09/22/22 13:14 09/22/22 13:14 Labs: Laboratory Results - last 24 hr 09/22/22 09/22/22 09/22/22 13:14 13:14 13:14 WBC 15.4 H RBC 4.30 Hgb 13.2 Hct 38.9 MCV 90.5 MCH 30.6 MCHC 33.8 RDW 16.0 H Plt Count 408 H Neut % (Auto) 90.6 H Lymph % (Auto) 5.9 L [place] % (Auto) 3.5 Eos % (Auto) 0.0 L Baso % (Auto) 0.0 Neut # (Auto) 14373 H Lymph # (Auto) 900 L [place] # (Auto) 500 Eos # (Auto) 0 Baso # (Auto) 0 Sodium 138 Potassium 3.5 Chloride 105 Carbon Dioxide 22 BUN 32 H Creatinine 0.60 Estimated GFR > 60 BUN/Creatinine Ratio 53.3 H Glucose 131 H Lactate Calcium 7.6 L Total Bilirubin 0.6 AST 17 ALT 16 Alkaline Phosphatase 159 H Troponin I 0.021 Total Protein 5.7 L Albumin 2.4 L Globulin 3.3 Albumin/Globulin Ratio 0.7 L Lipase 22 L SARS-CoV-2 (PCR) Negative Influenza A (RT-PCR) Flu a negative Influenza B (RT-PCR) Flu b negative RSV (PCR) Negative 09/22/22 13:52 WBC RBC Hgb Hct MCV MCH MCHC RDW Plt Count Neut % (Auto) Lymph % (Auto) [place] % (Auto) Eos % (Auto) Baso % (Auto) Neut # (Auto) Lymph # (Auto) [place] # (Auto) Eos # (Auto) Baso # (Auto) Sodium Potassium Chloride Carbon Dioxide BUN Creatinine Estimated GFR BUN/Creatinine Ratio Glucose Lactate 1.0 Calcium Total Bilirubin AST ALT Alkaline Phosphatase Troponin I Total Protein Albumin Globulin Albumin/Globulin Ratio Lipase SARS-CoV-2 (PCR) Influenza A (RT-PCR) Influenza B (RT-PCR) RSV (PCR) Assessment & Plan Assessment & Plan narrative: Shirley Hearn is admitted for further workup of abdominal pain and for surgical consult regarding bowel wall thickening versus mass. Abdominal pain, acute and present on admission * Imaging study reported bowel wall thickening vs mass * She will be seen by General Surgery, consult appreciated VTE Prophylaxis: Wells risk score [0] [X] Bilateral SCDs Pharmacological VTE prophylaxis contraindicated in the setting of anticipated surgery. Patient is admitted to the inpatient service due to the severity of disease, risks of further disease progression and this stay is expected to exceed 2 midnights. FEN: IV fluids: NS at 100 ml/hour, diet: NPO, labs: CBC, C/BMP, liver enzymes, Mag, PT/INR Consultants Dr. Reese, care and involvement in the patient?s care is appreciate d. Dispo: Admit to inpatient, w/eventual d/c to home Code status: DNR as discussed with the patient who identifies her daughter Irma as her surrogate and POA. [X] I have utilized all available immediate resources to obtain, update, or review of the patient's current medications VTE Deep Vein Thrombosis/Pulmonary Embolism Present on Admission: No MIPS - Admit I confirm the patient?s Advance Care Plan is present, Code status is documented, Surrogate decision maker is in patient?s record: Yes MIPS - DC The patient has current or prior documentation of left ventricular ejection fraction (LVEF) less than 40%, or moderate or severely depressed left ventricular systolic function.: No COVID-19 COVID-19 status: Negative Result date/Date tested (Pos, Neg/Pending): 09/22/22
--- NOTE | 2022-09-22 21:11 | PM.CALLCOV.1 ---
Call Coverage Note Note Date of Patient Contact: 09/22/22 Time of Patient Contact: 21:11 Narrative of Care Provided: 72F admitted with colitis and associated partial large bowel obstruction. -Clear liquids -Zosyn -Outpatient colonoscopy re colitis (infectious, malignancy) -No surgical intervention anticipated -Eval in AM
[2022-09-23] VITALS: BP 152/76; PULSE 114; RESP 6
[2022-09-23] MEDS: metroNIDAZOLE 500 MG/100 ML PIGGYBACK 100 MG IV ×3 (00:07→16:35)
[2022-09-23 00:45] VITALS: BP 146/96; PULSE 118; RESP 20; TEMP 36.1; O2SAT 96
[2022-09-23] MEDS: HYDROMORPHONE 0.5 MG INJ IV ×4 (00:59→20:53)
[2022-09-23 01:02] VITALS: BMI 21.4
--- NOTE | 2022-09-23 02:10 | PC.NURSE ---
Pt. arrived to the floor via stretcher at 0025, admitted for large bowel obstruction. Pt. is drowsy but is a&o x4. Pt. was incontinent of urine, pericare done and brief change. Oriented to call light use and bed control and instructed to never get OOB without assistance so she does not fall. Pt. understood and given the call light and bed alarm activated.
[2022-09-23 04:00] VITALS: BP 148/88; PULSE 105; RESP 18; TEMP 36.2; O2SAT 94
[2022-09-23] MEDS: PANTOPRAZOLE DR 20 MG TABLET PO (06:07)
--- NOTE | 2022-09-23 07:45 | P.PN_ITS ---
Subjective Subjective Date Patient Seen: 09/23/22 Interval history: She was admitted overnight with diverticulitis on CT scan. She is now on ceftriaxone and Flagyl but will be changed to Zosyn. She has been seen by surgery. She has no local primary care physician. Her white blood count on admission was 15.4. The BMP is normal with an Albumin of 2.4. Exam Vital Signs (past 8 hours): - 09/23/22 00:45 09/23/22 00:25 09/23/22 04:00 Temperature 96.9 F L 97.1 F L Pulse Rate 118 H 105 H Respiratory Rate 20 18 Blood Pressure 146/96 H 148/88 H Pulse Oximetry 96 94 Oxygen Delivery Method Room Air Oxygen Flow Rate 0 0 Oxygen Delivery Method Room Air Oxygen Flow Rate 0 Narrative Exam Narrative: She is alert and oriented x3. No apparent distress Heart is regular rate and rhythm without murmur Lungs are clear to auscultation bilaterally. Abdomen: bowel sounds positive, Not tender, very firm. No ankle edema Objective Labs Result Diagrams: 09/22/22 13:14 09/22/22 13:14 Labs: Laboratory Results - last 24 hr 09/22/22 09/22/22 09/22/22 13:14 13:14 13:14 WBC 15.4 H RBC 4.30 Hgb 13.2 Hct 38.9 MCV 90.5 MCH 30.6 MCHC 33.8 RDW 16.0 H Plt Count 408 H Neut % (Auto) 90.6 H Lymph % (Auto) 5.9 L [place] % (Auto) 3.5 Eos % (Auto) 0.0 L Baso % (Auto) 0.0 Neut # (Auto) 05530 H Lymph # (Auto) 900 L [place] # (Auto) 500 Eos # (Auto) 0 Baso # (Auto) 0 Sodium 138 Potassium 3.5 Chloride 105 Carbon Dioxide 22 BUN 32 H Creatinine 0.60 Estimated GFR > 60 BUN/Creatinine Ratio 53.3 H Glucose 131 H Lactate Calcium 7.6 L Total Bilirubin 0.6 AST 17 ALT 16 Alkaline Phosphatase 159 H Troponin I 0.021 Total Protein 5.7 L Albumin 2.4 L Globulin 3.3 Albumin/Globulin Ratio 0.7 L Lipase 22 L SARS-CoV-2 (PCR) Negative Influenza A (RT-PCR) Flu a negative Influenza B (RT-PCR) Flu b negative RSV (PCR) Negative 12/16/22 13:52 WBC RBC Hgb Hct MCV MCH MCHC RDW Plt Count Neut % (Auto) Lymph % (Auto) [place] % (Auto) Eos % (Auto) Baso % (Auto) Neut # (Auto) Lymph # (Auto) [place] # (Auto) Eos # (Auto) Baso # (Auto) Sodium Potassium Chloride Carbon Dioxide BUN Creatinine Estimated GFR BUN/Creatinine Ratio Glucose Lactate 1.0 Calcium Total Bilirubin AST ALT Alkaline Phosphatase Troponin I Total Protein Albumin Globulin Albumin/Globulin Ratio Lipase SARS-CoV-2 (PCR) Influenza A (RT-PCR) Influenza B (RT-PCR) RSV (PCR) [facility] Medical History Tobacco dependence Surgical History No history of previous surgery Family History Father Melanoma Mother Medical history unknown Social History household members: children Smoking Status: Former smoker Assessment & Plan Assessment & Plan narrative: Shirley Hearn is admitted for further workup of abdominal pain and for surgical consult regarding bowel wall thickening versus mass. Abdominal pain, acute and present on admission * Imaging study reported bowel wall thickening vs mass * General Surgery, consulted. Infectious Colitis, Zosyn and colonoscopy in the next 2 months recommended. Code status: DNR as discussed with the patient who identifies her daughter Irma as her surrogate and POA. Time Spent With Patient Critical Care time: I spent a total of [] minutes of critical care time on this patient's care today; this time is exclusive of procedural time.
[2022-09-23] MEDS: ONDANSETRON 4 MG/2 ML INJ IV (08:13)
[2022-09-23] MEDS: SODIUM CHLORIDE 0.9% 1,000 ML 100 ML IV (08:14)
[2022-09-23 09:30] VITALS: BP 146/87; PULSE 111; RESP 18; TEMP 36.4; O2SAT 95
--- NOTE | 2022-09-23 10:04 | PM.CN ---
History of Present Illness Consult details Date Patient Seen: 09/23/22 Time Patient Seen: 10:04 Chief complaint: Abdominal Pain Narrative: 72-year-old woman presented to [facility] with complaint of abdominal pain. She reports being unable to move bowels for the past several days no nausea or vomiting. CT abdomen pelvis demonstrates wall thickening of the distal colon, partial colonic obstruction with dilated loops of colon and small bowel. At admission WBC 15, neutrophils 91%, remainder of labs largely unremarkable. No personal or family history of intestinal malignancy. She would a colonoscopy within the past 5 years which was grossly normal per her report. 5-10 lb unintentional weight loss over the past several months no blood per rectum or diarrhea. Meds Home Medications and Allergies Home Medications Medication Instructions Recorded Confirmed Type oxycodone-acetaminophen 5 mg-325 1 tab PO Q6H PRN pain #10 tabs 09/13/22 09/23/22 Rx mg tablet Allergies Allergy/AdvReac Type Severity Reaction Status Date / Time Penicillins Allergy Verified 09/22/22 13:20 Exam Vital Signs (past 8 hours): - 09/23/22 04:00 09/23/22 09:30 Temperature 97.1 F L 97.6 F Pulse Rate 105 H 111 H Respiratory Rate 18 18 Blood Pressure 148/88 H 146/87 H Pulse Oximetry 94 95 Oxygen Flow Rate 0 Oxygen Delivery Method Room Air Oxygen Flow Rate 0 Narrative Exam Narrative: GENERAL: Thin elderly woman in no apparent distress HEENT: No scleral icterus CV: Regular rate, no peripheral edema LUNGS: No increased work of breathing. Patient speaks in full sentences without oxygen support. ABDOMEN: Soft, minimally distended non-tender, NEURO: Nonfocal, normal strength throughout, SKIN: Warm and dry Objective Labs Result Diagrams: 09/22/22 13:14 09/22/22 13:14 Labs: Laboratory Results - last 24 hr 09/22/22 09/22/22 09/22/22 13:14 13:14 13:14 WBC 15.4 H RBC 4.30 Hgb 13.2 Hct 38.9 MCV 90.5 MCH 30.6 MCHC 33.8 RDW 16.0 H Plt Count 408 H Neut % (Auto) 90.6 H Lymph % (Auto) 5.9 L [place] % (Auto) 3.5 Eos % (Auto) 0.0 L Baso % (Auto) 0.0 Neut # (Auto) 84025 H Lymph # (Auto) 900 L [place] # (Auto) 500 Eos # (Auto) 0 Baso # (Auto) 0 Sodium 138 Potassium 3.5 Chloride 105 Carbon Dioxide 22 BUN 32 H Creatinine 0.60 Estimated GFR > 60 BUN/Creatinine Ratio 53.3 H Glucose 131 H Lactate Calcium 7.6 L Total Bilirubin 0.6 AST 17 ALT 16 Alkaline Phosphatase 159 H Troponin I 0.021 Total Protein 5.7 L Albumin 2.4 L Globulin 3.3 Albumin/Globulin Ratio 0.7 L Lipase 22 L SARS-CoV-2 (PCR) Negative Influenza A (RT-PCR) Flu a negative Influenza B (RT-PCR) Flu b negative RSV (PCR) Negative 09/22/22 13:52 WBC RBC Hgb Hct MCV MCH MCHC RDW Plt Count Neut % (Auto) Lymph % (Auto) [place] % (Auto) Eos % (Auto) Baso % (Auto) Neut # (Auto) Lymph # (Auto) [place] # (Auto) Eos # (Auto) Baso # (Auto) Sodium Potassium Chloride Carbon Dioxide BUN Creatinine Estimated GFR BUN/Creatinine Ratio Glucose Lactate 1.0 Calcium Total Bilirubin AST ALT Alkaline Phosphatase Troponin I Total Protein Albumin Globulin Albumin/Globulin Ratio Lipase SARS-CoV-2 (PCR) Influenza A (RT-PCR) Influenza B (RT-PCR) RSV (PCR) [facility] Medical History Tobacco dependence Surgical History No history of previous surgery Family History Father Melanoma Mother Medical history unknown Social History household members: children Tobacco & Substance Use Smoking Status: Former smoker Assessment & Plan Assessment and plan (1) Partial obstruction of colon: Status: Acute Assessment & Plan narrative: 72-year-old woman admitted with partial colonic obstruction. CT abdomen pelvis reviewed demonstrates wall thickening of the distal colon unclear whether this represents colitis or malignancy there is no christopher mass. Recommend treating her for presumed infectious colitis with Zosyn. She needs a outpatient diagnostic colonoscopy within the next 2 months. Trial clear liquid diet and may advance as tolerated. Time Spent With Patient Critical Care time: I spent a total of [] minutes of critical care time on this patient's care today; this time is exclusive of procedural time.
--- NOTE | 2022-09-23 13:03 | CM.DANOTE ---
DCP: Case received, EMR reviewed and met with patient. Introduced self and role. Was able to obtain information regarding patient's baseline activity status prior to hospitalization, as well as her current living situation. DCP assessment completed with information currently available. Patient is a 72 year old female who admitted yesterday evening to the care of the hospitalist team. PCP: None locally. Payer: confirmed: Medicare. Patient came to the hospital via ambulance secondary to having abdominal pain, nausea and vomiting. Patient had surgery consult with Dr. Reese, indicated, possible colitis, is currently being treated with Zosyn. Notes indicate that patient will need an outpatient diagnostic colonoscopy in the next two months, and will do a trial of clear liquids today. Met with patient in her room. She was sitting up in bed, alert and oriented. Confirmed that she resides here in town with daughter, Irma Ulloa. Patient moved from the [facility] to be here with daughter. She uses no DME supplies, does not drive. She has no current local provider, let her know that she can be given a list of providers. P: DCP to continue to follow closely for needs. Plan is home when deemed medically stable. Nadeen Sharif RN/Long Term Care Administrator Discharge Planning/Care Management CM Discharge Assessment Start: 09/23/22 13:00 Freq: Status: Active Protocol: Document 09/23/22 13:00 (Rec: 09/23/22 13:03 [id number]) Discharge Planning Assessment Assigned Operations General Agent Nadeen Sharif RN/Long Term Care Administrator Advance Directives? No Advance Directives on File No History Provided By Patient,Medical Record Prior Living Arrangements House Household Members children Type of transporation used prior to Relies on Others admit Independent with ADL's Yes Is patient alert and oriented? Yes Caregiver for Another No Barriers to Discharge No Discharge Plan Home Transportation Arrangement Daughter Referrals Initiated None needed Whiteboard Updated in Patient Room with Yes name and ext. # of Operations General Agent Review Status In Process Next Review Type Continued Stay Review
[2022-09-23] MEDS: cefTRIAXone 2,000 MG in SODIUM CHLORIDE 0.9% 100 ML 200 MG IV (17:55)
[2022-09-23 21:00] VITALS: BP 158/100; PULSE 113; RESP 16; TEMP 36.5; O2SAT 95
[2022-09-24] MEDS: metroNIDAZOLE 500 MG/100 ML PIGGYBACK 100 MG IV ×4 (00:20→23:47)
[2022-09-24 01:25] VITALS: BP 134/86; PULSE 113; RESP 20; TEMP 37; O2SAT 95
[2022-09-24] MEDS: PANTOPRAZOLE DR 20 MG TABLET PO (05:13)
[2022-09-24] MEDS: HYDROMORPHONE 0.5 MG INJ IV ×2 (05:13→12:59)
[2022-09-24 05:30] VITALS: BP 140/80; PULSE 109; RESP 18; TEMP 36.4; O2SAT 96
[2022-09-24] MEDS: ENOXAPARIN 40 MG/0.4 ML SYRINGE SUBCUT (08:31)
[2022-09-24 10:30] VITALS: BP 129/77; PULSE 101; RESP 20; TEMP 36.4; O2SAT 96
[2022-09-24] MEDS: HYDROCODONE/ACET 5/325 TABLET 1 TAB PO (15:23)
--- NOTE | 2022-09-24 15:50 | CM.DPNOTE ---
Discharge Planning Note: Patient here with colitis, abdominal pain. On IV antibiotics, an outpatient colonoscopy has been recommended. Patient on trial with clear liquids. Plan: Return home when medically clear to care of daughter Irma. Jacque Clay RN/DCP
--- NOTE | 2022-09-24 16:32 | P.PN_ITS ---
Subjective Subjective Date Patient Seen: 09/24/22 Interval history: 72 year old female admitted with infectious colitis. Feels a bit better today, remains on ceftriaxone and flagyl. Denies diarrhea, nausea is improved as is abdominal pain. Exam Vital Signs (past 8 hours): - 09/24/22 10:30 Temperature 97.5 F L Pulse Rate 101 H Respiratory Rate 20 Blood Pressure 129/77 Pulse Oximetry 96 Oxygen Delivery Method Room Air Oxygen Flow Rate 0 Narrative Exam Narrative: GENERAL: Thin elderly woman in no apparent distress HEENT: No scleral icterus CV: Regular rate, no peripheral edema LUNGS: No increased work of breathing. Patient speaks in full sentences without oxygen support. ABDOMEN: Soft, non-distended, minimally tender. NEURO: Nonfocal, normal strength throughout, SKIN: Warm and dry Objective Labs Result Diagrams: 09/22/22 13:14 09/22/22 13:14 [facility] Medical History Tobacco dependence Surgical History No history of previous surgery Family History Father Melanoma Mother Medical history unknown Social History household members: children Smoking Status: Former smoker Assessment & Plan Assessment & Plan narrative: Shirley Hearn is admitted for infectious colitis, improving slowly with antibiotic therapy. Infectious colitis, acute and present on admission * Imaging study reported bowel wall thickening vs mass * General Surgery, consulted. Infectious Colitis, Zosyn and colonoscopy in the next 2 months recommended. * GI panel if diarrhea Code status: DNR as discussed with the patient who identifies her daughter Irma as her surrogate and POA. Time Spent With Patient Critical Care time: I spent a total of [] minutes of critical care time on this patient's care today; this time is exclusive of procedural time.
[2022-09-24] MEDS: cefTRIAXone 2,000 MG in SODIUM CHLORIDE 0.9% 100 ML 100 MG IV (16:39)
--- NOTE | 2022-09-24 19:27 | PC.NURSE ---
patient is alert x 3 w/ occassional confusion on date/situation. appears deconditioned, very thin, and w/ unkempt hair and very long dirty fingernails. urine is strong, bowel movements are sour smelling. agreeable to get into the shower so MONOR[employer] HELPER and RN can work on combing thru her hair which is matted into big knots on the back of her head. 2pa to [facility], which we then brought into the shower/bathroom. applied conditioners to soften the knots and they were too difficult to comb thru. patient has long hair about to below her shoulders on the top and sides, and was agreeable to allow this RN to cut thru the knots to allow for her hair /scalp to be cleaned and brushed. about 2 large handfuls of knots and matted hair were removed, and her hair was gently combed after toweled dry. she was able to have about a Large formed BM in the commode, stool was yellowish/josy colored, w/ very strong sour odor. blanchable coccyx, cream applied, pull up placed and fresh nightgown. patient does not have dentures here, message left for her daughter to bring these in if able. and although is happy about her advanced from clears diet: she is unable to chew hard pieces of food, however ordered a garden salad for lunch which she picked at. soft easy to chew and swallow foods offered and given thru the day, yogurt and soups and smoothies. daughter and granddaughter here to visit this afternoon. recommend CM follow up as daughter says that patient and herself and granddaugther all work at the [employer] asked daughter how did patient get around at the [employer] as she is so frail and unable to move w/o 2pa mod / max assist. she just did it, and our boss is going to get her a w/c. patient was grossly incont today of b/b, and needs mod/max assist w/ ADLs. patient has a PIV to left wrist, noted to have approx 2.5cm round purplish bruise to the underside of her left wrist, she said it may have been the IV, or the blood draw. receiving rocephin IV. patient denies pain to bruise, WCTM. bed alarm is on, call light w/in reach.
[2022-09-24 21:30] VITALS: BP 100/71; PULSE 66; RESP 24; TEMP 36.8; O2SAT 97
[2022-09-24] MEDS: SODIUM CHLORIDE 0.9% 1,000 ML 1000 ML IV (22:25)
[2022-09-24 22:30] VITALS: BP 94/68; PULSE 160; RESP 28; O2SAT 96
[2022-09-24 23:01] LABS: Add Manual Diff / Slide Review NO; Basophils Absolute Auto 100 /uL (0-100); Basophils Percent Auto 0.4 % (0-2); Eosinophils Absolute Auto 0 /uL (0-450); Eosinophils Percent Auto 0.1 % (2-4); Hematocrit 38.5 % (36-46); Hemoglobin 12.8 g/dL (12.0-16.0); Lymphocytes Absolute Auto 400 /uL (1100-4500); Mean Corpuscular HGB Conc 33.4 % (30-36); Mean Corpuscular Hemoglobin 30.5 PG (26-34); Mean Corpuscular Volume 91.4 fL (80-100); Monocytes Absolute Auto 200 /uL (0-900); Neutrophils Absolute Auto 18100 /uL (1500-7000); Neutrophils Percent Auto 96.5 % (50-75); Platelet Count 373 X10^3/uL (150-400); Red Blood Cell Count 4.21 X10^6/uL (4.0-5.2); Red Cell Distribution Width 16.2 % (11.6-14.8); White Blood Cell Count 18.7 X10^3/uL (4.5-11.0)
[2022-09-24 23:14] LABS: BUN Creatinine Ratio 31.2 (6-22); Blood Urea Nitrogen 34 mg/dL (7-17); Calcium 7.3 mg/dL (8.4-10.2); Carbon Dioxide 13 mmol/L (22-32); Chloride 114 mmol/L (98-107); Estimated Glomerular Filt Rate 55 mL/min (>60); Glucose 74 mg/dL (80-110); HEMOLYSIS 39 (0-50); Potassium 3.5 mmol/L (3.4-5.1); Sodium 138 mmol/L (137-145)
--- NOTE | 2022-09-24 23:26 | DI.RAD.S_ITS ---
PROCEDURE: XR CHEST 1V INDICATIONS: Tachypnea TECHNIQUE: One view of the chest was acquired. COMPARISON: None. FINDINGS: Surgical changes and devices: None. Lungs and pleura: There are linear opacities in the left lung base likely representing atelectasis or scarring. No pleural effusions or pneumothorax. Mediastinum: Mediastinal contours appear normal. Heart size is normal. Bones and chest wall: No suspicious bony lesions. Overlying soft tissues appear unremarkable. IMPRESSION: 1. No definite acute cardiopulmonary disease. 2. Probable atelectasis or scarring in the left lung base. Dictated by: Wilner Looney M.D. on 09/24/2022 at 23:48 Approved by: Wilner Looney M.D. on 09/24/2022 at 23:52
[2022-09-24 23:36] LABS: Magnesium 1.7 mg/dL (1.6-2.3)
[2022-09-24 23:39] LABS: Lactate (Lactic Acid) 2.4 mmol/L (0.7-2.1)
[2022-09-24] MEDS: LACTATED RINGERS 1,000 ML 100 ML IV (23:45)
[2022-09-24 23:54] LABS: Erythrocyte Sedimentation Rate 16 MM/HR (0-20)
[2022-09-25] VITALS (25 sets, daily range): BP systolic 91–141; BP diastolic 46–89; PULSE 90–151; RESP 18–32; TEMP 35.9–37.2; O2SAT 90–94
[2022-09-25] MEDS: PIPERACILLIN/TAZO 4.5 GM in SODIUM CHLORIDE 0.9% 100 ML IV (00:25)
[2022-09-25] MEDS: AMIODARONE 150 MG/100 ML PIGGYBACK 600 MG IV (01:06)
[2022-09-25] MEDS: AMIODARONE 360 MG/200 ML PIGGYBACK IV ×2 (01:07→06:58)
[2022-09-25 01:30] LABS: Reflexed Lactate in 2 Hours Y
[2022-09-25 01:56] LABS: Lactate 2HR (Lactic Acid Rflx) 1.4 mmol/L (0.7-2.1)
[2022-09-25] MEDS: ONDANSETRON 4 MG/2 ML INJ IV (01:56)
[2022-09-25] MEDS: PIPERACILLIN/TAZO 3.375 GM in SODIUM CHLORIDE 0.9% 100 ML IV ×3 (04:22→19:43)
[2022-09-25] MEDS: SODIUM CHLORIDE 0.9% 1,000 ML 100 ML IV (05:30)
[2022-09-25] MEDS: PANTOPRAZOLE DR 20 MG TABLET PO (05:30)
[2022-09-25] MEDS: ACETAMINOPHEN 325 MG TABLET 650 MG PO (05:30)
[2022-09-25 06:03] LABS: Add Manual Diff / Slide Review NO; Basophils Absolute Auto 0 /uL (0-100); Basophils Percent Auto 0.1 % (0-2); Eosinophils Absolute Auto 0 /uL (0-450); Hematocrit 38.5 % (36-46); Hemoglobin 12.8 g/dL (12.0-16.0); Lymphocytes Absolute Auto 800 /uL (1100-4500); Lymphocytes Percent Auto 4.9 % (25-40); Mean Corpuscular HGB Conc 33.1 % (30-36); Mean Corpuscular Hemoglobin 30.5 PG (26-34); Mean Corpuscular Volume 92.1 fL (80-100); Monocytes Absolute Auto 400 /uL (0-900); Monocytes Percent Auto 2.6 % (3-14); Neutrophils Absolute Auto 15400 /uL (1500-7000); Neutrophils Percent Auto 92.4 % (50-75); Platelet Count 325 X10^3/uL (150-400); Red Blood Cell Count 4.18 X10^6/uL (4.0-5.2); Red Cell Distribution Width 16.1 % (11.6-14.8); White Blood Cell Count 16.7 X10^3/uL (4.5-11.0)
[2022-09-25 06:24] LABS: Alanine Aminotransferase 121 IU/L (<35); Albumin Globulin Ratio 0.7 (1.0-2.8); Alkaline Phosphatase 120 U/L (38-126); Aspartate Aminotransferase 325 IU/L (14-36); BUN Creatinine Ratio 32.5 (6-22); Bilirubin Total 0.5 mg/dL (0.2-1.3); Blood Urea Nitrogen 37 mg/dL (7-17); Calcium 7.5 mg/dL (8.4-10.2); Carbon Dioxide 16 mmol/L (22-32); Chloride 111 mmol/L (98-107); Estimated Glomerular Filt Rate 52 mL/min (>60); Globulin 2.8 g/dL (1.7-4.1); Glucose 106 mg/dL (80-110); HEMOLYSIS 18 (0-50); Magnesium 1.7 mg/dL (1.6-2.3); Potassium 3.4 mmol/L (3.4-5.1); Sodium 137 mmol/L (137-145); Total Protein 4.8 g/dL (6.3-8.2)
--- NOTE | 2022-09-25 06:25 | PM.CN.EICU ---
History of Present Illness Consult details IF CAMERA ACTIVATED, patient seen via real-time interactive audiovisual communication: Camera activated Chief complaint: Abdominal Pain Consent obtained for tele-division toll wire chief care: Yes Patient Location: ICU Provider location (State): [place] Other participants/roles: RN Narrative: 72 year ols taylor admitted with infectious colitis, trasnferred to ICU overnight due to afib with RVR, and HR to 160s-180s with refreactory hypotension. Patient started on amio gtt with bolus, and on my evlauaiton shortly after this was adminitered, her HR improved to 101, and was hd stabkle. on my camera eval she was awake and in no acite distress [facility] Medical History Tobacco dependence Surgical History No history of previous surgery Family History Father Melanoma Mother Medical history unknown Social History household members: children Smoking Status: Former smoker Current Medications Current Medications Medications: Home Medications oxycodone-acetaminophen 5 mg-325 mg tablet 1 tab PO Q6H PRN pain #10 tabs 09/13/22 [Rx Confirmed 09/23/22] Visit Medications (administered) Generic Name Dose Route Start Last Admin Trade Name Freq PRN Reason Stop Dose Admin Acetaminophen 650 mg 09/22/22 19:04 09/25/22 05:30 Acetaminophen 325 Mg Tablet PO 650 mg Q6H PRN Administration Fever/Mild Pain (1-3) Hydrocodone Bitart/Acetaminophen 1 tab 09/22/22 19:04 09/24/22 15:23 Hydrocodone/Acet 5/325 Tablet PO 1 tab Q4H PRN Administration Pain, Moderate (4-6) Enoxaparin Sodium 40 mg 09/24/22 09:00 09/24/22 08:31 Enoxaparin 40 Mg/0.4 Ml Syringe SUBCUT 40 mg DAILY QUIANA Administration Hydromorphone HCl 0.5 mg 09/22/22 19:04 09/24/22 12:59 Hydromorphone 0.5 Mg Inj IV 0.5 mg Q3H PRN Administration pain Sodium Chloride 1,000 mls @ 100 mls/hr 09/22/22 19:04 09/24/22 21:35 Normal Saline 0.9% IV 10/23/22 05:03 Infused CONT QUIANA Infusion Metronidazole 500 mg in 100 mls @ 100 mls/hr 09/23/22 15:30 09/25/22 00:00 Flagyl IV 0 mls/hr Q8H QUIANA Infusion Piperacillin Sod/Tazobactam 100 mls @ 25 mls/hr 09/25/22 04:00 09/25/22 04:22 Sod 3.375 gm/ Sodium Chloride IV 25 mls/hr Q8H QUIANA Administration Phenylephrine HCl 20,000 mcg/ 250 mls @ 37.5 mls/hr 09/25/22 00:40 09/25/22 02:32 Dextrose IV 50 mcg/min TITRATE QUIANA 37.5 mls/hr Administration Protocol 50 MCG/MIN Amiodarone HCl/Dextrose 360 mg in 200 mls @ 33.333 mls/hr 09/25/22 00:53 09/25/22 01:07 Nexterone IV 09/25/22 06:52 1 mg/hr NOW ONE 0.556 mls/hr Administration Protocol Sodium Chloride 1,000 mls @ 100 mls/hr 09/25/22 05:15 09/25/22 05:30 Normal Saline 0.9% IV 100 mls/hr CONT QUIANA Administration Ondansetron HCl 4 mg 09/22/22 19:04 09/25/22 01:56 Ondansetron 4 Mg/2 Ml Inj IV 4 mg Q8HR PRN Administration Nausea And Vomiting Pantoprazole Sodium 20 mg 09/23/22 06:00 09/25/22 05:[address] 20 Mg Tablet PO 20 mg 0600 QUIANA Administration Exam Vital Signs (past 8 hours): - 09/24/22 22:30 09/25/22 00:40 09/25/22 04:06 Temperature 98.6 F Pulse Rate 160 H 151 H Respiratory Rate 28 H 22 Blood Pressure 94/68 99/46 L Pulse Oximetry 96 93 Oxygen Delivery Method Room Air Oxygen Flow Rate 0 09/25/22 01:00 09/25/22 02:00 09/25/22 03:00 Temperature Pulse Rate 125 H 106 H 99 H Respiratory Rate 26 H 24 24 Blood Pressure 91/55 L 97/60 99/57 L Pulse Oximetry 93 92 93 Oxygen Delivery Method Oxygen Flow Rate 09/25/22 04:00 09/25/22 05:00 Temperature 98.3 F Pulse Rate 97 H 94 H Respiratory Rate 26 H 25 H Blood Pressure 104/56 L 113/69 Pulse Oximetry 93 93 Oxygen Delivery Method Oxygen Flow Rate Oxygen Delivery Method Room Air Oxygen Flow Rate 0 Narrative Exam Narrative: surrogate for exam si primary team Objective Labs Result Diagrams: 09/25/22 05:02 09/24/22 22:52 Labs: Laboratory Results - last 24 hr 09/24/22 09/24/22 09/24/22 22:52 22:52 22:52 WBC 18.7 H RBC 4.21 Hgb 12.8 Hct 38.5 MCV 91.4 MCH 30.5 MCHC 33.4 RDW 16.2 H Plt Count 373 Neut % (Auto) 96.5 H Lymph % (Auto) 2.0 L [place] % (Auto) 1.0 L Eos % (Auto) 0.1 L Baso % (Auto) 0.4 Neut # (Auto) 97438 H Lymph # (Auto) 400 L [place] # (Auto) 200 Eos # (Auto) 0 Baso # (Auto) 100 ESR Sodium 138 Potassium 3.5 Chloride 114 H Carbon Dioxide 13 L BUN 34 H Creatinine 1.09 H Estimated GFR 55 L BUN/Creatinine Ratio 31.2 H Glucose 74 L Lactate Calcium 7.3 L Magnesium 1.7 C-Reactive Protein Procalcitonin 3.80 H Nasal Screen MRSA (PCR) 09/24/22 09/24/22 09/24/22 22:52 22:52 22:52 WBC RBC Hgb Hct MCV MCH MCHC RDW Plt Count Neut % (Auto) Lymph % (Auto) [place] % (Auto) Eos % (Auto) Baso % (Auto) Neut # (Auto) Lymph # (Auto) [place] # (Auto) Eos # (Auto) Baso # (Auto) ESR 16 Sodium Potassium Chloride Carbon Dioxide BUN Creatinine Estimated GFR BUN/Creatinine Ratio Glucose Lactate 2.4 H Calcium Magnesium C-Reactive Protein 13.0 H Procalcitonin Nasal Screen MRSA (PCR) 09/25/22 09/25/22 09/25/22 01:30 01:38 05:02 WBC 16.7 H RBC 4.18 Hgb 12.8 Hct 38.5 MCV 92.1 MCH 30.5 MCHC 33.1 RDW 16.1 H Plt Count 325 Neut % (Auto) 92.4 H Lymph % (Auto) 4.9 L [place] % (Auto) 2.6 L Eos % (Auto) 0.0 L Baso % (Auto) 0.1 Neut # (Auto) 72770 H Lymph # (Auto) 800 L [place] # (Auto) 400 Eos # (Auto) 0 Baso # (Auto) 0 ESR Sodium Potassium Chloride Carbon Dioxide BUN Creatinine Estimated GFR BUN/Creatinine Ratio Glucose Lactate 1.4 Calcium Magnesium C-Reactive Protein Procalcitonin Nasal Screen MRSA (PCR) Negative for mrsa Assessment & Plan Assessment & Plan narrative: Atrial fibrillation with RVR sepsis 2/2 infectious colitis metabolic aciosis - mixed anion and non anion gap supplemental o2 as needed TTE cont amio gtt AC adat trend bmp monitor UO empric abx f/u cx 'dvt/gi ppx trend LA hold NS due to hypochloremia Time Spent With Patient Critical Care time: I spent a total of []35 minutes of critical care time on this patient's care today; this time is exclusive of procedural time.
[2022-09-25] MEDS: ENOXAPARIN 40 MG/0.4 ML SYRINGE SUBCUT (08:17)
[2022-09-25] MEDS: HYDROCODONE/ACET 5/325 TABLET 1 TAB PO (08:17)
[2022-09-25] MEDS: MAGNESIUM CHLORIDE 64 MG TABLET 128 MG PO (12:36)
[2022-09-25] MEDS: POTASSIUM CHLORIDE 20 MEQ TAB 40 MEQ PO (12:36)
--- NOTE | 2022-09-25 15:55 | PC.NURSE ---
Patient has not voided yet this shift. Brief is dry at this time, and bladder scan shows approx 130cc. While at patient's bedside patient's heart rate noted upto 120-140's, non sustained at this time. BP 118/[address] Michel notified of elevated heart rate and low urine output. Will continue to monitor.
--- NOTE | 2022-09-25 16:18 | P.PN_ITS ---
Subjective Subjective Date Patient Seen: 09/25/22 Interval history: 72 year old female admitted with infectious colitis. Feels a bit better today again but overnight developed afib with RVR and hypotension, she required amiodarone infusion. She denies abdominal pain or diarrhea today Exam Vital Signs (past 8 hours): - 09/25/22 08:30 09/25/22 08:30 09/25/22 09:00 Temperature 99.0 F Pulse Rate 93 H Respiratory Rate 25 H Blood Pressure 116/68 Pulse Oximetry Oxygen Flow Rate 09/25/22 12:00 Temperature 98.7 F Pulse Rate 94 H Respiratory Rate 24 Blood Pressure 136/73 Pulse Oximetry 93 Oxygen Flow Rate 0 Oxygen Delivery Method Room Air Oxygen Flow Rate 0 Narrative Exam Narrative: GENERAL: Thin elderly woman in no apparent distress HEENT: No scleral icterus CV:RRR today no peripheral edema LUNGS: CTA b/l. No increased work of breathing. Patient speaks in full sentences without oxygen support. ABDOMEN: Soft, non-distended, non-tender NEURO: Nonfocal, normal strength throughout, SKIN: Warm and dry Objective Labs Result Diagrams: 09/25/22 05:02 09/25/22 05:02 Labs: Laboratory Results - last 24 hr 09/24/22 09/24/22 09/24/22 22:52 22:52 22:52 WBC 18.7 H RBC 4.21 Hgb 12.8 Hct 38.5 MCV 91.4 MCH 30.5 MCHC 33.4 RDW 16.2 H Plt Count 373 Neut % (Auto) 96.5 H Lymph % (Auto) 2.0 L [place] % (Auto) 1.0 L Eos % (Auto) 0.1 L Baso % (Auto) 0.4 Neut # (Auto) 21769 H Lymph # (Auto) 400 L [place] # (Auto) 200 Eos # (Auto) 0 Baso # (Auto) 100 ESR Sodium 138 Potassium 3.5 Chloride 114 H Carbon Dioxide 13 L BUN 34 H Creatinine 1.09 H Estimated GFR 55 L BUN/Creatinine Ratio 31.2 H Glucose 74 L Lactate Calcium 7.3 L Magnesium 1.7 Total Bilirubin AST ALT Alkaline Phosphatase C-Reactive Protein Total Protein Albumin Globulin Albumin/Globulin Ratio Procalcitonin 3.80 H Nasal Screen MRSA (PCR) 09/24/22 09/24/22 09/24/22 22:52 22:52 22:52 WBC RBC Hgb Hct MCV MCH MCHC RDW Plt Count Neut % (Auto) Lymph % (Auto) [place] % (Auto) Eos % (Auto) Baso % (Auto) Neut # (Auto) Lymph # (Auto) [place] # (Auto) Eos # (Auto) Baso # (Auto) ESR 16 Sodium Potassium Chloride Carbon Dioxide BUN Creatinine Estimated GFR BUN/Creatinine Ratio Glucose Lactate 2.4 H Calcium Magnesium Total Bilirubin AST ALT Alkaline Phosphatase C-Reactive Protein 13.0 H Total Protein Albumin Globulin Albumin/Globulin Ratio Procalcitonin Nasal Screen MRSA (PCR) 09/25/22 09/25/22 09/25/22 01:30 01:38 05:02 WBC 16.7 H RBC 4.18 Hgb 12.8 Hct 38.5 MCV 92.1 MCH 30.5 MCHC 33.1 RDW 16.1 H Plt Count 325 Neut % (Auto) 92.4 H Lymph % (Auto) 4.9 L [place] % (Auto) 2.6 L Eos % (Auto) 0.0 L Baso % (Auto) 0.1 Neut # (Auto) 08299 H Lymph # (Auto) 800 L [place] # (Auto) 400 Eos # (Auto) 0 Baso # (Auto) 0 ESR Sodium Potassium Chloride Carbon Dioxide BUN Creatinine Estimated GFR BUN/Creatinine Ratio Glucose Lactate 1.4 Calcium Magnesium Total Bilirubin AST ALT Alkaline Phosphatase C-Reactive Protein Total Protein Albumin Globulin Albumin/Globulin Ratio Procalcitonin Nasal Screen MRSA (PCR) Negative for mrsa 09/25/22 05:02 WBC RBC Hgb Hct MCV MCH MCHC RDW Plt Count Neut % (Auto) Lymph % (Auto) [place] % (Auto) Eos % (Auto) Baso % (Auto) Neut # (Auto) Lymph # (Auto) [place] # (Auto) Eos # (Auto) Baso # (Auto) ESR Sodium 137 Potassium 3.4 Chloride 111 H Carbon Dioxide 16 L BUN 37 H Creatinine 1.14 H Estimated GFR 52 L BUN/Creatinine Ratio 32.5 H Glucose 106 Lactate Calcium 7.5 L Magnesium 1.7 Total Bilirubin 0.5 AST 325 H ALT 121 H Alkaline Phosphatase 120 C-Reactive Protein Total Protein 4.8 L Albumin 2.0 L Globulin 2.8 Albumin/Globulin Ratio 0.7 L Procalcitonin Nasal Screen MRSA (PCR) [facility] Medical History Tobacco dependence Surgical History No history of previous surgery Family History Father Melanoma Mother Medical history unknown Social History household members: children Smoking Status: Former smoker Assessment & Plan Assessment & Plan narrative: Shirley Hearn is admitted for infectious colitis, improving slowly with antibiotic therapy but course complicated by afib with RVR overnight. Sepsis secondary to Infectious colitis, acute and present on admission * Imaging study reported bowel wall thickening vs mass * General Surgery, consulted. Infectious Colitis, Zosyn and colonoscopy in the next 2 months recommended. * GI panel if diarrhea Afib with RVR - controlled overnight with amiodarone given hypotension - stopped amiodarone given LFT increase and rate now controlled. with improved BP change to oral metoprolol if rate control is needed. - check TTE - consider AC, though in setting of infection risk of stroke may be minimal. Probably will discharge on baby aspirin only Transaminitis - may be in setting of hypotension, continue to follow. ASHWIN - likely in setting of hypotension and infection - continue to follow. Acidosis - metabolic acidosis, possibly due to NS, normal sugars and no DM so not DKA. Lactate also normal. - Normal saline held. Code status: DNR as discussed with the patient who identifies her daughter Irma as her surrogate and POA. Time Spent With Patient Critical Care time: I spent a total of [] minutes of critical care time on this patient's care today; this time is exclusive of procedural time.
--- NOTE | 2022-09-25 16:23 | DI.ECHO.S_ITS ---
[facility] +---------+ : : [address] : [address] : : : : [id number] : : : : Phone: [phone]+ Echocardiogram Report + + :Name: LILI MELTON Study Date: 09/26/2022 Height: 63 in : :[facility] ReadingLocation: Weight: 151 lb : : Gender: Female BSA: 1.7 m2 : :: 1950 Age: 72 yrs BP: 147/75 mmHg: :Reason For Study: AFIB RVR : : Performed By: Kai Garcia : :Referring: TERESITA STEVENS : + + Interpretation Summary 1) Normal left ventricular size and thickness withi mildly to moderately reduced systolic function (EF 40-45%). 2) The apical third of the left ventricle is severely hypokiinetic to akinetic. 3) Normal right ventricular size and function. 4) Severely enlarged left atrium. 5) There is moderate mitral regurgitation. There is ild-moderate tricuspid regurgitation. 6) No prior Echo available for comparison. Findings consistent with ischemic cardiomyopathy or takosubo cardiomyopathy. Procedure: A two-dimensional transthoracic echocardiogram with color flow and Doppler was performed. The study quality was technically adequate. There is no prior echocardiogram noted for this patient. The patient was very confused and unable to cooperate well with the exam. The patient had a heart rate of 99-125 beats per minute. Left Ventricle: The left ventricle is normal in size. There is normal left ventricular wall thickness. Proximal septal thickening is noted. There is no thrombus. The ejection fraction is estimated to be 40-45%. The apical third of the left ventricle is severely hypokiinetic to akinetic. Right Ventricle: The right ventricle is normal in size and function. Atria: The left atrium is severely dilated. Right atrial size is normal. There is no Doppler evidence for an atrial septal defect. Mitral Valve: There is severe mitral annular calcification. The mitral valve leaflets are mildly calcified. The mean pressure gradient of the mitral valve is 3.5 mmHg. The mitral valvw area is estimated to be 8.6 cm2. There is moderate mitral regurgitation. Aortic Valve: The aortic valve is trileaflet. The aortic valve opens well. No aortic regurgitation is present. Tricuspid Valve: The tricuspid valve is normal in structure and function. There is mild to moderate tricuspid regurgitation. The right ventricular systolic pressure is estimated to be at least 37 mmHg based on an estimated right atrial pressure of 3 mm Hg. Pulmonic Valve: The pulmonic valve is not well seen, but is grossly normal. There is no pulmonic valvular regurgitation. Great Vessels: The aortic root is normal size. The dimensions of the ascending aorta are normal. Mild atherosclerotic plaque(s) in the aortic arch. The pulmonary artery is normal size. The IVC is of normal diameter and collapses greater than 50% with a sniff. This suggests a low right atrial pressure of 3 mm Hg. Pericardium/ Pleura There is a trivial to small pericardial effusion noted. There are no echocardiographic indications of cardiac tamponade. There is no pleural effusion. MMode/2D Measurements & Calculations LVIDd: 4.4 cm LVOT diam: 2.2 cm LVIDs: 2.4 cm Ao root diam: 2.9 cm FS: 44.4 % asc Aorta Diam: 2.6 cm EPSS: 0.42 cm Ao Arch Diam (Prox Trans): 2.8 cm IVSd: 1.2 cm LVPWd: 1.3 cm LV do. diameter/BSA (cm/m^2): 2.6 LV sys. diameter/BSA (cm/m^2): 1.4 LA A2 area: 25.9 cm2 RA long axis: 4.1 cm LA A4 area: 25.4 cm2 RA area: 12.6 cm2 LA length (vol): 5.6 cm RA vol: 32.8 ml LA vol: 100.1 ml RA : 19.1 ml/m2 LA vol index: 58.3 ml/m2 IVC diam: 0.40 cm Doppler Measurements & Calculations Ao V2 max: 112.9 cm/sec LVOT Max Gallito: 110.4 cm/sec Ao V2 mean: 92.7 cm/sec LV V1 max P.9 mmHg Ao max P.1 mmHg LV V1 VTI: 17.9 cm Ao mean P.6 mmHg AMADO(I,D): 3.2 cm2 Ao V2 VTI: 20.8 cm AMADO(V,D): 3.7 cm2 sev ratio: 0.86 AMADO indexed to BSA (cm^2/m^2): 1.9 MV E max gallito: 145.2 cm/sec TR max gallito: 292.4 cm/sec MV A max gallito: 3.8 cm/sec TR max P.2 mmHg MV E/A: 38.6 PA V2 max: 81.5 cm/sec Med Peak E' Gallito: 3.6 cm/sec PA V2 mean: 56.7 cm/sec E/E' med: 40.4 PA mean P.4 mmHg Lat Peak E' Gallito: 3.5 cm/sec PA pr(Accel): 48.2 mmHg E/E' lat: 41.5 E/e' average: 41.0 MV dec time: 0.09 sec MV P1/2t: 25.7 msec MVA(VTI): 3.4 cm2 MV V2 mean: 85.1 cm/sec MV P1/2t max gallito: 147.9 cm/sec MV mean P.5 mmHg MVA(P1/2t): 8.6 cm2 MV V2 VTI: 19.7 cm SV(LVOT): 67.0 ml Reading Physician:11:05 AM
[2022-09-25 20:42] LABS: Adenovirus F 40/41 Not Detected (Not Detect); Astrovirus Not Detected (Not Detect); Campylobacter Not Detected (Not Detect); Clostridium difficile toxin AB Not Detected (Not Detect); Cryptosporidium Not Detected (Not Detect); Cyclospora cayetanensis Not Detected (Not Detect); Entamoeba histolytica Not Detected (Not Detect); Enteroaggregative E.coli Not Detected (Not Detect); Enteropathogenic E.coli Not Detected (Not Detect); Enterotoxigenic E.coli It/st Not Detected (Not Detect); Giardia lamblia Not Detected (Not Detect); Norovirus GI/GII Not Detected (Not Detect); Plesiomonsa shigelloides Not Detected (Not Detect); Rotavirus A Not Detected (Not Detect); Salmonella Not Detected (Not Detect); Sapovirus Not Detected (Not Detect); Shiga-like toxin-prod E.coli Not Detected (Not Detect); Shigella/Enteroinvasive E.coli Not Detected (Not Detect); Vibrio Not Detected (Not Detect); Vibrio cholerae Not Detected (Not Detect); Yersinia enterocolitica Not Detected (Not Detect)
[2022-09-26] VITALS (9 sets, daily range): BP systolic 118–147; BP diastolic 65–79; PULSE 99–107; RESP 16–20; TEMP 36.3–37.1; O2SAT 92–97
[2022-09-26] MEDS: HYDROCODONE/ACET 5/325 TABLET 1 TAB PO (00:23)
--- NOTE | 2022-09-26 00:44 | PC.NURSE ---
Addendum entered by Eunice Chinchilla R.N. 09/26/22 05:17: Patient has not urinated on this shift and has had no po intake. Bladder scan showing 71cc. YASHIRA Mejia, informed and reviewed with her patient's breath sounds, cough and need for O2 tonight. See new order for IVF. Original Note: Patient is alert and oriented to self, birthdate, year and place; has delayed responses to questions. Breath sounds coarse with expiratory rhonchi throughout left > right. Loose, moist, non-productive cough noted but denies SOB. Initially on RA with sat of only 90% so placed on oxygen at 2L/min with sat rebounding to 95%. HRR but tachy in low 100's; telemetry reading was ST. Denies nausea. BT hypoactive and abdomen is distended but soft. Denied pain at time of assessment but recently complaining of 5/10 sharp abdominal pain so medicated with Vicodin. Has had low urine output but was incontinent of urine at shift change; previous RN reported that MD was aware of low UOP. Is needing assistance to reposition q2h. Has non-blanchable redness to coccyx and allevyn dressing to area is CDI; placed waffle cushion. Not out of bed so gait not assessed and unknown if uses AD but does have generalized weakness. Is wearing bilateral calf SCD's. Pedal edema noted bilaterally and feet are cool to touch. Fall risk score is high and bed alarm is activated.
[2022-09-26] MEDS: SODIUM CHLORIDE 0.9% FLUSH 10 ML IV ×2 (03:39→09:26)
[2022-09-26] MEDS: PIPERACILLIN/TAZO 3.375 GM in SODIUM CHLORIDE 0.9% 100 ML IV ×3 (03:39→20:11)
[2022-09-26] MEDS: SODIUM CHLORIDE 0.9% 1,000 ML 60 ML IV ×2 (05:17→20:24)
[2022-09-26 05:28] LABS: Add Manual Diff / Slide Review NO; Basophils Absolute Auto 0 /uL (0-100); Basophils Percent Auto 0.1 % (0-2); Eosinophils Absolute Auto 0 /uL (0-450); Hematocrit 36.9 % (36-46); Hemoglobin 12.2 g/dL (12.0-16.0); Lymphocytes Absolute Auto 800 /uL (1100-4500); Lymphocytes Percent Auto 4.6 % (25-40); Mean Corpuscular Hemoglobin 30.5 PG (26-34); Mean Corpuscular Volume 92.3 fL (80-100); Monocytes Absolute Auto 400 /uL (0-900); Monocytes Percent Auto 2.3 % (3-14); Neutrophils Absolute Auto 15700 /uL (1500-7000); Platelet Count 378 X10^3/uL (150-400); Red Cell Distribution Width 17.1 % (11.6-14.8); White Blood Cell Count 16.9 X10^3/uL (4.5-11.0)
[2022-09-26 05:42] LABS: Alanine Aminotransferase 120 IU/L (<35); Albumin 2.1 g/dL (3.5-5.0); Albumin Globulin Ratio 0.6 (1.0-2.8); Alkaline Phosphatase 177 U/L (38-126); Aspartate Aminotransferase 154 IU/L (14-36); BUN Creatinine Ratio 32.9 (6-22); Bilirubin Total 0.6 mg/dL (0.2-1.3); Blood Urea Nitrogen 52 mg/dL (7-17); Calcium 7.6 mg/dL (8.4-10.2); Carbon Dioxide 16 mmol/L (22-32); Chloride 111 mmol/L (98-107); Estimated Glomerular Filt Rate 35 mL/min (>60); Globulin 3.3 g/dL (1.7-4.1); Glucose 94 mg/dL (80-110); HEMOLYSIS < 15 (0-50); Magnesium 1.8 mg/dL (1.6-2.3); Potassium 4.5 mmol/L (3.4-5.1); Sodium 138 mmol/L (137-145); Total Protein 5.4 g/dL (6.3-8.2)
[2022-09-26] MEDS: PANTOPRAZOLE DR 20 MG TABLET PO (06:01)
[2022-09-26] MEDS: ENOXAPARIN 40 MG/0.4 ML SYRINGE SUBCUT (09:26)
[2022-09-26] MEDS: ACETAMINOPHEN 325 MG TABLET 650 MG PO (09:27)
--- NOTE | 2022-09-26 11:50 | PT.IIE ---
Current Diagnoses Partial intestinal obstruction, unspecified as to cause (09/22/22) Procedure and treatment not carried out because of other contraindication (09/22/22) Surgical History (Last Reviewed 09/23/22 @ 10:09 by Ean Reese MD) No history of previous surgery Medical History (Last Reviewed 09/23/22 @ 10:09 by Ean Reese MD) Tobacco dependence Physical Therapy Inpatient Evaluation/Re-Eval M1 PT/OT-IP Prior Functional Status Start: 09/26/22 13:16 Freq: NEEDED Status: Active Protocol: Document 09/26/22 11:50 AB (Rec: 09/26/22 13:29 AB [email or web address]) Medical Review Prior Functional Status Medical History Reviewed Yes Communication inconsistent with following directions and answering questions Mobility and Gait stated that she is independent with all mobilities and ambulation without AD Social History Household Members children Living Arrangements House Number of Floors (Floors) One Floor Number of Stairs To Enter/Railing? stated that she has 1 flight of stairs with wide rails to enter the house Home Environment Standard Height Toilet,Tub/ Shower Home Equipment Hand Held Shower,Grab Bars Near Toilet Additional Social History Comment lives with her daughter and grand daughter M2 PT-IP Current Condition Start: 09/26/22 13:16 Freq: NEEDED Status: Active Protocol: Document 09/26/22 11:50 AB (Rec: 09/26/22 13:29 AB [email or web address]) Physical Therapy Current Condition Current Condition Evaluation Date 09/26/22 Treatment Diagnosis colitis; difficulty in walking Onset Date 09/22/22 M3 PT-IP Subjective Start: 09/26/22 13:16 Freq: NEEDED Status: Active Protocol: Document 09/26/22 11:50 AB (Rec: 09/26/22 13:29 AB [email or web address]) Subjective Physical Therapy Visit Type Type Initial Evaluation Visit Start Time 11:50 Visit Stop Time 12:18 Total Visit Minutes 28 Number of SPOUT POSITIONER Visits 0 Physical Therapy Visit Comments Patient Comments needs encouragement to complete tasks Therapy Pain Assessment Pain When Pain Assessed At Rest Pain Present Pain Present Pain Reported Location Abdominal Scale Used pain scale not stated Pain Management Techniques Distraction,Modification of Treatment,Re-positioning, Timing of Activity with Medications M4 PT-IP Mobility and Gait Start: 09/26/22 13:16 Freq: NEEDED Status: Active Protocol: Document 09/26/22 11:50 AB (Rec: 09/26/22 13:29 AB [email or web address]) PT-Bed Mobility Assessment Supine to Sit Supine to Sit Maximum Assistance,Total Assistance,2 Person Assistance ,Head of Bed Elevated,Bedrails Sit to Supine Sit to Supine Total Assistance,2 Person Assistance Scooting Scooting to Edge of Bed Dependent PT-Transfer Assessment Sit to and From Stand Sit to and from Stand Maximum Assistance,2 Person Assistance,Use of Upper Extremities Comments Mobility Comments completed bed mobility supine to sit with HOB elevated max A x 2 to total A x 2. pt needs cues to keep eyes open and has difficulty following directions. needs encouragement to initiate movement. max A needed for sitting balance with increase posterior trunk lean. after ~ 1-2 min of sitting up pt then push trunk back to laying down position in bed and stated I told you I am going down. encouraged pt to sit up and agreed after ~ 1 min of rest. pt sat on EOB again max A. encouraged to stand. completed sit to stand from EOB but unable to completely get to upright position despite max A x 2-3 provided. assisted pt towards HOB. scooted pt to HOB total Ax 2 and max cues. total A x 2 for sit to supine. total A x 2 for positioning in bed. Left pt with nursing staff. PT-Balance Assessment Sitting Balance and Reactions Static Sitting Balance Ability Poor Dynamic Sitting Balance Ability Poor Standing Balance and Reactions Static Standing Balance Ability Poor Dynamic Standing Balance Ability Poor Device Used FWW M5 PT-IP Objective Assessments Start: 09/26/22 13:16 Freq: NEEDED Status: Active Protocol: Document 09/26/22 11:50 AB (Rec: 09/26/22 13:29 AB [facility]) Orientation Orientation/Cognition Level of Alertness Confusional State Orientation Name Language Function Ability No Deficits Noted Safety Awareness Decreased Safety Awareness Memory Description Short Term Impaired,Fci Impaired Gross Range of Motion Lower Extremity ROM Assessment Within Functional Limits Strength Lower Extremity Strength Assessment Bilaterally Impaired Hip 3-/5 Knee 2+/5 Muscle Tone Muscle Tone WNL Yes M6 PT-IP Treatment Start: 09/26/22 13:16 Freq: NEEDED Status: Active Protocol: Document 09/26/22 11:50 AB (Rec: 09/26/22 13:29 AB [facility]) Physical Therapy Treatment Education Education Provided Safety M7 PT-IP Assessment and Plan Start: 09/26/22 13:16 Freq: NEEDED Status: Active Protocol: Document 09/26/22 11:50 AB (Rec: 09/26/22 13:29 AB [id number]) PT Summary Assessment and Plan Potential Rehabilitation Potential Fair Status of Condition at Evaluation Unstable Summary Impairments Pain,ROM,Strength,Balance, Coordination,Sensation,Tone, Cognition,Bed Mobility, Transfers,Gait,Activity Tolerance Assessment Summary Pt requiring max A x 2 to total A x 2 with mobility and will require SNF rehab to improve overall strength and function. will continue to assess progress. Goals Bed Mobility Goal Minimal Assistance Transfer Goal Minimal Assistance Gait Goal Minimal Assistance Gait Distance 25 Other Goals improve bed mobility,transfer and ambulation using FWW 100 ft SBA up/down 13 steps 1 rail SBA Days to Meet Goals 10 Frequency of Treatment Frequency Of Treatment Once a Day Treatment Plan Physical Therapy Treatment Plan Bed Mobility Training,Transfer Training,Gait Training, Therapeutic Exercise,Balance Retraining,Discharge Planning, Hot or Cold Pack,Neuromuscular Re-ed,Coordination Retraining ,Manual Therapy Precautions Other Precautions falls Recommendations To Nursing Amount of Assist Needed Mechanical Lift Discharge Recommendations PT Discharge Recommendations SNF Rehab Transportation Needs at Discharge Stretcher/Ambulance
--- NOTE | 2022-09-26 12:38 | DIET.CONS ---
Dietary Consultation Note Admission Date: 09/22/2022 19:07 Assessment: 72y F admitted for distal colonic obstruction thought to be infectious in nature screened by RD for MNA score 11 (at risk for malnutrition). Pt with three ED visits over the past 1mo with recorded 10% unintentional weight loss during that time (severe) with current BMI 21.4 (low for age). Pt assigned general diet, however, no meaningful PO intake, little urine output, and worsening renal function from WNL upon admission to eGR 35 and Cr 1.58. Pt had a few weeks of diarrhea in late August and has reported global weakness and frequent falling since. Ht: 160.02 cm Wt: 55 kg BMI: 21.4 (low for age) UBW: 65kg Last BM: 09/24/22 (09/24/22 12:50) MNA: 11 Marshal Score: 17 Diet: 09/24/22 Breakfast General (Regular) Diet Diet Modifications: Nutrition Percent Meal Consumed Pt refused breakfast 09/26/22 09:21 Percent Meal Consumed 0% 09/25/22 13:46 Labs: RBC 4.00 X10^6/uL (4.0-5.2) 09/26/22 04:35 Hgb 12.2 g/dL (12.0-16.0) 09/26/22 04:35 Hct 36.9 % (36-46) 09/26/22 04:35 Creatinine 1.58 mg/dL (0.52-1.04) H 09/26/22 04:35 Lactate 1.4 mmol/L (0.7-2.1) 09/25/22 01:38 Nutrition Diagnosis: Severe Acute Protein Calorie Malnutrition r/t inadequate oral intake aeb 10% unintentional weight loss in 1mo (severe), BMI 21.5 (low for age), pt with 1mo hx diarrhea and global weakness, pt with no meaningful PO while hospitalized, poor urine output and worsening renal fxn. Malnutrition increases complexity of care and increases risk of poor outcome. Interventions: 1. To support pts nutrition and hydration status, Unit Host to discuss pts preference of ONS-whether clear, milk based or smoothie. EER: [id number] kcals (30-35kcal/kg per PCM), 55g PRO (1g/kg per PCM renal) Monitoring/Evaluations: ONS tolerance, POs Electronically Signed by: Anneliese Lambert 09/26/22 12:38 Clinical Dietitian [address] [address]
--- NOTE | 2022-09-26 17:33 | P.PN_ITS ---
Subjective Subjective Date Patient Seen: 09/26/22 Interval history: 72 year old female admitted with infectious colitis. Feels a bit better today again and denies abdominal pain, chest pain, shortness of breath but remains very weak. Exam Vital Signs (past 8 hours): - 09/26/22 12:28 Temperature 97.8 F Pulse Rate 107 H Respiratory Rate 20 Blood Pressure 129/71 Pulse Oximetry 96 Oxygen Flow Rate 0 Oxygen Delivery Method Room Air Oxygen Flow Rate 0 Narrative Exam Narrative: GENERAL: Thin elderly woman in no apparent distress HEENT: No scleral icterus CV:RRR today no peripheral edema LUNGS: CTA b/l. No increased work of breathing. Patient speaks in full sentences without oxygen support. ABDOMEN: Soft, non-distended, non-tender NEURO: Nonfocal, normal strength throughout, SKIN: Warm and dry Objective Labs Result Diagrams: 09/26/22 04:35 09/26/22 04:35 Labs: Laboratory Results - last 24 hr 09/25/22 09/26/22 09/26/22 18:50 04:35 04:35 WBC 16.9 H RBC 4.00 Hgb 12.2 Hct 36.9 MCV 92.3 MCH 30.5 MCHC 33.0 RDW 17.1 H Plt Count 378 Neut % (Auto) 93.0 H Lymph % (Auto) 4.6 L Drew % (Auto) 2.3 L Eos % (Auto) 0.0 L Baso % (Auto) 0.1 Neut # (Auto) 25822 H Lymph # (Auto) 800 L Drew # (Auto) 400 Eos # (Auto) 0 Baso # (Auto) 0 Sodium 138 Potassium 4.5 Chloride 111 H Carbon Dioxide 16 L BUN 52 H Creatinine 1.58 H Estimated GFR 35 L BUN/Creatinine Ratio 32.9 H Glucose 94 Calcium 7.6 L Magnesium 1.8 Total Bilirubin 0.6 AST 154 H ALT 120 H Alkaline Phosphatase 177 H Total Protein 5.4 L Albumin 2.1 L Globulin 3.3 Albumin/Globulin Ratio 0.6 L Stl C. cayetanensis PCR Not detected Stool Rotavirus (PCR) Not detected Stool Adenovirus (PCR) Not detected Stool Astrovirus (PCR) Not detected Stool Cryptosporidium PCR Not detected Stl E.coli Shiga Tox PCR Not detected St Sh/Enteroin Ecoli PCR Not detected Stool E coli O157 PCR Not Reportable Stl Enterotoxigenic E PCR Not detected Stool EPEC (PCR) Not detected Stl E. histolytica PCR Not detected Stool Giardia Lamblia PCR Not detected Stool Sapovirus (PCR) Not detected Stl P. shigelloides PCR Not detected St Y.enterocolitica PCR Not detected Stool Vibrio (PCR) Not detected Stl Vibrio cholerae PCR Not detected Stl Enteroaggr Ecoli PCR Not detected Stl Norovirus GI/GII PCR Not detected Campylobacter (PCR) Not detected C. difficile Tox (PCR) Not detected Salmonella (PCR) Not detected PFS Medical History Tobacco dependence Surgical History No history of previous surgery Family History Father Melanoma Mother Medical history unknown Social History household members: children Smoking Status: Former smoker Assessment & Plan Assessment & Plan narrative: Shirley Hearn is admitted for infectious colitis, improving slowly with antibiotic therapy but course complicated by afib with RVR overnight. Sepsis secondary to Infectious colitis, acute and present on admission * Imaging study reported bowel wall thickening vs mass * General Surgery, consulted. Infectious Colitis, Zosyn and colonoscopy in the next 2 months recommended. * GI panel negative Afib with RVR - controlled overnight with amiodarone given hypotension - stopped amiodarone given LFT increase and rate now controlled. with improved BP change to oral metoprolol if rate control is needed. - TTE with EF of 40-45% with apical hypokinesis. - discuss with cardiology re: stress testing or further evaluation Acute systolic heart failure - may be afib with RVR, takotsubo, or ischemia based on TTE - start on beta mary and aspen inhibition - no volume overload currently, no indication for diuresis. Transaminitis - likely in setting of hypotension, continue to follow. ASHWIN - likely in setting of hypotension and infection - continue to follow. Acidosis - metabolic acidosis, possibly due to NS, normal sugars and no DM so not DKA. Lactate also normal. - Normal saline held. Code status: DNR as discussed with the patient who identifies her daughter Irma as her surrogate and POA. Dispo: pending PT/OT, possible SNF vs home. Time Spent With Patient Critical Care time: I spent a total of [] minutes of critical care time on this patient's care today; this time is exclusive of procedural time.
[2022-09-26] MEDS: METOPROLOL ER 25 MG TABLET 12.5 MG PO (20:13)
[2022-09-26] MEDS: HYDROMORPHONE 0.5 MG INJ IV (20:24)
[2022-09-27] VITALS (11 sets, daily range): BP systolic 106–134; BP diastolic 61–82; PULSE 84–118; RESP 15–22; TEMP 36.3–37; O2SAT 91–96
--- NOTE | 2022-09-27 03:45 | DI.MRI.S_ITS ---
PROCEDURE: MR STROKE Pre- and post-contrast brain MRI, non-contrast brain MR angiogram, pre- and postcontrast neck MR angiogram INDICATIONS: r/o strokevs TIA TECHNIQUE: Brain: Noncontrast axial T1 spin echo, axial T2 fast spin echo, sagittal and axial FLAIR, coronal T2 fast spin echo, axial gradient echo, axial diffusion and ADC through the brain. After the administration of contrast, axial 3D VIBE of the cranial vasculature and brain. Brain MRA: Non-contrast 3-D time of flight MR angiogram, with multiple iiazijk-jsrzndhaa-stqnzftvse (MIP) reformats performed. Neck MRA: Axial and sagittal TruFISP through the neck. Coronal dynamic MR angiogram during administration of contrast in the arterial and venous phases, with 3-dimenstional kwjsiox-sqqchckyb-ddeowmwnve (MIP) reformats constructed from subtraction images. COMPARISON: None. FINDINGS: Image quality: Excellent. BRAIN: CSF spaces: Ventricles are symmetric in size and shape. Basal cisterns are patent. No extra-axial fluid collections. Brain: There is an old lacunar infarct involving the right caudate. No intracranial bleeds or mass effects. There is moderate cerebral volume loss. There are multiple foci of T2/FLAIR hyperintensity in periventricular white matter, most likely secondary to periventricular white matter chronic small vessel ischemic changes. Diffusion weighted images show no acute ischemic insults. Brainstem appears normal. Normal intravascular flow voids are present. No abnormal intracranial enhancement. Skull and face: Calvarial marrow signal is normal. There is abnormality in right globe with T2 hyperintensity in the posterior globe. Sinuses: There are air-fluid levels in the left sphenoid and maxillary sinuses, consistent with sinusitis. Trace fluid in mastoids. BRAIN MR ANGIOGRAM: Anterior circulation: Intracranial internal carotid arteries are normal in size and enhancement. The flow within the paired anterior cerebral arteries is normal and symmetric. The flow within the middle cerebral arteries is normal and symmetric. The anterior communicating artery is seen. No stenoses, occlusions, or aneurysms. Posterior circulation: The visualized portions of the vertebral arteries demonstrate normal caliber, and join to form a normal appearing basilar artery. The flow within the posterior cerebral arteries is normal and symmetric. No stenoses, occlusions, or aneurysms. NECK MR ANGIOGRAM: Carotids: Great vessels demonstrate a conventional anatomy as they arise from the aortic arch. The origins of the common carotid arteries appear patent. The calibers and courses of both common carotid arteries are normal. The bifurcation regions appear normal bilaterally. The internal carotid arteries demonstrate normal course and caliber. Posterior circulation: The origins of the vertebral arteries appear patent. More superior portions of both vertebral arteries demonstrate normal course and caliber, and join to form a normal appearing basilar artery. Miscellaneous: Subclavian arteries appear patent. Pre-contrast images through the neck show no soft tissue abnormalities. IMPRESSION: BRAIN MRI: 1. No acute intracranial abnormalities. 2. Old lacunar infarct in the right caudate. 3. Moderate cerebral volume loss. Multiple foci of T2 hyperintensity in periventricular white matter. In this patient's age group, the finding is most compatible with chronic microvascular ischemic changes. Some pericallosal white matter lesions demonstrate configuration resembling Centeno's fingers. A differential diagnosis is multiple sclerosis. Recommend clinical correlation. 4. Left sphenoid and maxillary sinusitis. 5. Abnormality in the posterior right globe. This finding may be associated with retina detachment. Recommend clinical correlation. BRAIN MR ANGIOGRAM: 1. No hemodynamic significant stenosis in anterior or posterior circulations. NECK MR ANGIOGRAM: 1. No hemodynamic significant stenosis in cervical carotid arteries or vertebral arteries bilaterally. Dictated by: Kay Arizmendi M.D. on 09/27/2022 at 16:58 Approved by: Kay Arizmendi M.D. on 09/27/2022 at 17:15
[2022-09-27] MEDS: HYDROCODONE/ACET 5/325 TABLET 1 TAB PO (04:06)
[2022-09-27] MEDS: PIPERACILLIN/TAZO 3.375 GM in SODIUM CHLORIDE 0.9% 100 ML IV ×3 (04:07→21:14)
[2022-09-27] MEDS: PANTOPRAZOLE DR 20 MG TABLET PO (05:32)
[2022-09-27] MEDS: SODIUM CHLORIDE 0.9% 1,000 ML 60 ML IV (06:20)
[2022-09-27] MEDS: HYDROMORPHONE 0.5 MG INJ IV (06:37)
[2022-09-27 07:28] LABS: Acinetobacter baumannii Not Detected (Not Detect); Candida albicans Not Detected (Not Detect); Candida glabrata Not Detected (Not Detect); Candida krusei Not Detected (Not Detect); Candida parapsilosis Not Detected (Not Detect); Candida tropicalis Not Detected (Not Detect); E. coli Not Detected (Not Detect); Enterobacter cloacae complex Not Detected (Not Detect); Enterobacteriaceae species Not Detected (Not Detect); Enterococcus species Not Detected (Not Detect); Haemophilus influenzae Not Detected (Not Detect); Listeria monocytogenes Not Detected (Not Detect); Neisseria meningitidis Not Detected (Not Detect); Proteus species Not Detected (Not Detect); Pseudomonas aeruginosa Not Detected (Not Detect); Serratia marcescens Not Detected (Not Detect); Staphylococcus species Not Detected (Not Detect); Streptococcus agalactiae (Gr B Not Detected (Not Detect); Streptococcus pneumonia Not Detected (Not Detect); Streptococcus pyogenes (Gr A) Not Detected (Not Detect); Streptococcus species Not Detected (Not Detect)
[2022-09-27 08:28] LABS: Add Manual Diff / Slide Review NO; Basophils Absolute Auto 0 /uL (0-100); Basophils Percent Auto 0.1 % (0-2); Eosinophils Absolute Auto 0 /uL (0-450); Hematocrit 36.5 % (36-46); Hemoglobin 11.5 g/dL (12.0-16.0); Lymphocytes Absolute Auto 400 /uL (1100-4500); Lymphocytes Percent Auto 2.9 % (25-40); Mean Corpuscular HGB Conc 31.6 % (30-36); Mean Corpuscular Hemoglobin 29.6 PG (26-34); Mean Corpuscular Volume 93.5 fL (80-100); Monocytes Absolute Auto 200 /uL (0-900); Monocytes Percent Auto 1.1 % (3-14); Neutrophils Absolute Auto 13100 /uL (1500-7000); Neutrophils Percent Auto 95.9 % (50-75); Platelet Count 320 X10^3/uL (150-400); White Blood Cell Count 13.7 X10^3/uL (4.5-11.0)
[2022-09-27] MEDS: ENOXAPARIN 30 MG/0.3 ML SYRINGE SUBCUT (08:36)
[2022-09-27] MEDS: SODIUM CHLORIDE 0.9% FLUSH 10 ML IV (08:37)
[2022-09-27 08:42] LABS: Alanine Aminotransferase 103 IU/L (<35); Albumin 2.1 g/dL (3.5-5.0); Albumin Globulin Ratio 0.7 (1.0-2.8); Alkaline Phosphatase 198 U/L (38-126); Aspartate Aminotransferase 106 IU/L (14-36); BUN Creatinine Ratio 37.6 (6-22); Bilirubin Total 0.7 mg/dL (0.2-1.3); Blood Urea Nitrogen 41 mg/dL (7-17); Calcium 7.2 mg/dL (8.4-10.2); Carbon Dioxide 14 mmol/L (22-32); Chloride 116 mmol/L (98-107); Estimated Glomerular Filt Rate 55 mL/min (>60); Globulin 3.1 g/dL (1.7-4.1); Glucose 61 mg/dL (80-110); HEMOLYSIS 38 (0-50); Magnesium 1.8 mg/dL (1.6-2.3); Potassium 4.1 mmol/L (3.4-5.1); Sodium 141 mmol/L (137-145); Total Protein 5.2 g/dL (6.3-8.2)
--- NOTE | 2022-09-27 09:01 | DI.US.S_ITS ---
PROCEDURE: US ABDOMEN LIMITED INDICATIONS: ABN LFTS; N/V; ABNORMAL CT TECHNIQUE: Real-time scanning was performed of the abdominal and retroperitoneal organs, with image documentation. COMPARISON: [facility], CT, CT ABDOMEN PELVIS W CON, 09/22/2022, 13:39. FINDINGS: Liver: The liver is only partially characterized due to overlying bowel gas. Gallbladder: The gallbladder wall is densely calcified. Marked shadowing is noted. Biliary ducts: Intrahepatic bile ducts are non-dilated. Extrahepatic bile duct caliber measures 10.1 mm. Normal is 6-7 mm or less in diameter, or 10 mm or less post-cholecystectomy. Pancreas: The pancreas is not visualized Some perihepatic free fluid is noted. IMPRESSION: 1. Porcelain gallbladder. Surgical consultation recommended as this can be associated with gallbladder neoplasm. 2. Perihepatic free fluid. Dictated by: Emily Kothari M.D. on 09/27/2022 at 10:56 Approved by: Emily Kothari M.D. on 09/27/2022 at 11:02
--- NOTE | 2022-09-27 11:18 | PC.NURSE ---
Addendum entered by Fiorella Starks R.N. 09/27/22 18:54: MRI questionnaire completed with daughter Irma. BGL this afternoon 54. D50 administered and D5 1/2NS started per MD orders. BGL on recheck 208. HR elevated to 120s upon return from MRI. IV metoprolol administered with success. HR now maintaining in 90s, BP 106/64. Original Note: This am, pt able to state name and birthday but otherwise drowsy and unable to answer further questioning. Droop/lack of movement to L side of mouth noted upon smile. Overall, pt very weak but bilateral hand squeeze equally weak. Unable to administer oral meds due to drowsiness. MD to bedside for assessment. This nurse has attempted twice to contact daughter over the phone to complete the MRI screening form but there has been no answer.
[2022-09-27] MEDS: LACTATED RINGERS 1,000 ML 100 ML IV (11:29)
--- NOTE | 2022-09-27 15:36 | PT.IPTN ---
Current Diagnoses Partial intestinal obstruction, unspecified as to cause (09/22/22) Procedure and treatment not carried out because of other contraindication (09/22/22) Physical Therapy Treatment Note M2 PT-IP Current Condition Start: 09/26/22 13:16 Freq: NEEDED Status: Active Protocol: Document 09/26/22 11:50 AB (Rec: 09/26/22 13:29 AB [id number]) Physical Therapy Current Condition Current Condition Evaluation Date 09/26/22 Treatment Diagnosis colitis; difficulty in walking Onset Date 09/22/22 M3 PT-IP Subjective Start: 09/26/22 13:16 Freq: NEEDED Status: Active Protocol: Document 09/27/22 15:23 LJ (Rec: 09/27/22 15:36 LJ [id number]) Subjective Physical Therapy Visit Type Type Treatment Note Visit Start Time 14:58 Visit Stop Time 15:21 Total Visit Minutes 23 Number of ARTIST'S MODEL Visits 1 Physical Therapy Visit Comments Patient Comments Willing to attempt to sit on side of bed Therapy Pain Assessment Pain When Pain Assessed At Rest Pain Present Pain Present Denied Pain Location Abdominal Scale Used pain scale not stated Pain Management Techniques Distraction,Modification of Treatment,Re-positioning, Timing of Activity with Medications M4 PT-IP Mobility and Gait Start: 09/26/22 13:16 Freq: NEEDED Status: Active Protocol: Document 09/27/22 15:23 LJ (Rec: 09/27/22 15:36 LJ [id number]) PT-Bed Mobility Assessment Supine to Sit Supine to Sit Maximum Assistance,Total Assistance,2 Person Assistance ,Head of Bed Elevated,Bedrails Sit to Supine Sit to Supine Total Assistance,2 Person Assistance Scooting Scooting to Edge of Bed Dependent PT-Transfer Assessment Comments Mobility Comments Pt MaxAx2 for sit>supine with HOB elevated. Facial grimmacing and wincing c/o pain in hips and abdomen. Not able to keep eyes open for more than a few seconds at a time. Difficulty following directions. MaxA x2 for sitting balance with increased posterior lean. Pt sat for ~ 30 sec then leaned to left to lay back down in bed. Pt c/o pain and did not want to attempt to sit up again. She required total assist to reposition in bed. Resting vitals 132/77, HR 117, O2 90%. With mobility HR increased to 122 and O2 dropped to 89%. Pt reamins in confused state. Pt left with all needs within reach PT-Balance Assessment Sitting Balance and Reactions Static Sitting Balance Ability Poor Dynamic Sitting Balance Ability Poor M5 PT-IP Objective Assessments Start: 09/26/22 13:16 Freq: NEEDED Status: Active Protocol: Document 09/26/22 11:50 AB (Rec: 09/26/22 13:29 AB [id number]) Orientation Orientation/Cognition Level of Alertness Confusional State Orientation Name Language Function Ability No Deficits Noted Safety Awareness Decreased Safety Awareness Memory Description Short Term Impaired,Nursing Consultant Impaired Gross Range of Motion Lower Extremity ROM Assessment Within Functional Limits Strength Lower Extremity Strength Assessment Bilaterally Impaired Hip 3-/5 Knee 2+/5 Muscle Tone Muscle Tone WNL Yes M6 PT-IP Treatment Start: 09/26/22 13:16 Freq: NEEDED Status: Active Protocol: Document 09/27/22 15:23 LJ (Rec: 09/27/22 15:36 LJ [id number]) Physical Therapy Treatment Exercises Exercises Ankle Pumps,Heel Slides M7 PT-IP Assessment and Plan Start: 09/26/22 13:16 Freq: NEEDED Status: Active Protocol: Document 09/27/22 15:23 LJ (Rec: 09/27/22 15:36 [id number]) PT Summary Assessment and Plan Potential Rehabilitation Potential Fair Status of Condition at Evaluation Unstable Summary Impairments Pain,ROM,Strength,Balance, Coordination,Sensation,Tone, Cognition,Bed Mobility, Transfers,Gait,Activity Tolerance Assessment Summary Pt requiring max A x 2 to total A x 2 with mobility and will require SNF rehab to improve overall strength and function. will continue to assess progress. Goals Bed Mobility Goal Minimal Assistance Transfer Goal Minimal Assistance Gait Goal Minimal Assistance Gait Distance 25 Other Goals improve bed mobility,transfer and ambulation using FWW 100 ft SBA up/down 13 steps 1 rail SBA Days to Meet Goals 10 Frequency of Treatment Frequency Of Treatment Once a Day Treatment Plan Physical Therapy Treatment Plan Bed Mobility Training,Transfer Training,Gait Training, Therapeutic Exercise,Balance Retraining,Discharge Planning, Hot or Cold Pack,Neuromuscular Re-ed,Coordination Retraining ,Manual Therapy Precautions Other Precautions falls Discharge Recommendations PT Discharge Recommendations SNF Rehab Transportation Needs at Discharge Stretcher/Ambulance
--- NOTE | 2022-09-27 15:40 | P.PN_ITS ---
Subjective Subjective Date Patient Seen: 09/27/22 Interval history: 72 year old female admitted with infectious colitis. She is more lethargic today, with increased slurred speech overnight. MR ordered of her brain. She is not tolerating any oral medications this morning. Acidosis slightly worsening. NS discontinued yesterday and changed to LR. Glucose was 61 on labs today, repeated this afternoon was in the 50s with POC checks. Ordered for d50, will switch infusion of fluids from LR to D5 1/2 NS. Exam Vital Signs (past 8 hours): - 09/27/22 08:00 09/27/22 10:48 09/27/22 08:15 Temperature 98.4 F Pulse Rate 104 H Respiratory Rate 15 Blood Pressure 122/76 Pulse Oximetry 93 94 Oxygen Delivery Method Nasal Cannula Nasal Cannula Oxygen Flow Rate 2 2 09/27/22 12:00 Temperature 98.1 F Pulse Rate 114 H Respiratory Rate 20 Blood Pressure 132/77 Pulse Oximetry 93 Oxygen Delivery Method Oxygen Flow Rate 2 Oxygen Delivery Method Nasal Cannula Oxygen Flow Rate 2 Narrative Exam Narrative: GENERAL: Thin elderly woman in no apparent distress, lethargic with slurred speech more than usual HEENT: No scleral icterus, dry Mucous membranes Neck: trachea midline, no lymphadenopathy. CV:RRR today no peripheral edema LUNGS: CTA b/l. No increased work of breathing. ABDOMEN: Soft, non-distended, non-tender NEURO: Nonfocal, normal strength throughout, difficult to discern based on lethargy. SKIN: Warm and dry Objective Labs Result Diagrams: 09/27/22 08:03 09/27/22 08:03 Labs: Laboratory Results - last 24 hr 09/22/22 09/27/22 09/27/22 14:15 08:03 08:03 WBC 13.7 H RBC 3.90 L Hgb 11.5 L Hct 36.5 MCV 93.5 MCH 29.6 MCHC 31.6 RDW 17.0 H Plt Count 320 Neut % (Auto) 95.9 H Lymph % (Auto) 2.9 L [place] % (Auto) 1.1 L Eos % (Auto) 0.0 L Baso % (Auto) 0.1 Neut # (Auto) 33605 H Lymph # (Auto) 400 L [place] # (Auto) 200 Eos # (Auto) 0 Baso # (Auto) 0 Sodium 141 Potassium 4.1 Chloride 116 H Carbon Dioxide 14 L BUN 41 H Creatinine 1.09 H Estimated GFR 55 L BUN/Creatinine Ratio 37.6 H Glucose 61 L Calcium 7.2 L Magnesium 1.8 Total Bilirubin 0.7 AST 106 H ALT 103 H Alkaline Phosphatase 198 H Total Protein 5.2 L Albumin 2.1 L Globulin 3.1 Albumin/Globulin Ratio 0.7 L A. baumannii (PCR) Not detected Linnea albicans (PCR) Not detected C. glabrata (PCR) Not detected C. krusei (PCR) Not detected C. parapsilosis (PCR) Not detected C. tropicalis (PCR) Not detected Enterobacteriac sp PCR Not detected E. cloacae complex PCR Not detected Enterococcus sp PCR Not detected E. coli (PCR) Not detected H. influenzae (PCR) Not detected Klebsiella oxytoca PCR Not detected Klebsiella pneumoniae Not detected List. monocytogenes PCR Not detected N. meningitidis (PCR) Not detected Proteus species (PCR) Not detected Serratia marcescens PCR Not detected Staphylococcus sp PCR Not detected Staph aureus (PCR) Not detected mecA-Methicil Res Gene TNP Streptococcus sp PCR Not detected Group A Strep (PCR) Not detected Strep agalactiae (PCR) Not detected Strep pneumoniae (PCR) Not detected P. aeruginosa (PCR) Not detected Brigette/B-Vanco Res Genes TNP KPC-Carbap Res Gene PCR TNP PFSH Medical History Tobacco dependence Surgical History No history of previous surgery Family History Father Melanoma Mother Medical history unknown Social History household members: children Smoking Status: Former smoker Assessment & Plan Assessment & Plan narrative: Shirley Hearn is admitted for infectious colitis, improving slowly with antibiotic therapy initially but progress has slowed and she is actually more lethargic today. Sepsis secondary to Infectious colitis, acute and present on admission with ASHWIN and acute metabolic encephalopathy. -Imaging study reported bowel wall thickening vs mass - General Surgery, consulted. Infectious Colitis, Zosyn and colonoscopy in the next 2 months recommended. -GI panel negative -Leukocytosis has slowly improved with antibiotic therapy, though clinically not responding as well as expected and may be related to possibe rossy's? as discussed below. - MR stroke protocol ordered given increased lethargy and encephalopathy today. Afib with RVR - controlled overnight initially with amiodarone given hypotension. Then stopped amiodarone given LFT increase and rate was controlled. Improved with oral metoprolol which she was unable to tolerate. - continue oral metoprolol and beta mary. - TTE with EF of 40-45% with apical hypokinesis. - discuss with cardiology re: stress testing or further evaluation Acute systolic heart failure - may be failure due to afib with RVR, takotsubo, or ischemia based on TTE - start on beta amry and aspen inhibition - no volume overload currently, no indication for diuresis. - discussed with cardiology, did recommend stress testing prior to discharge, perhaps later this week but this will depend on her continued encephalopathy at this point. Transaminitis - likely in setting of hypotension, continue to follow. 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 Discussed with surgery whom recommends outpatient follow up at this time. ASHWIN - likely in setting of hypotension and infection, improved - continue to follow. Non-anion gap Acidosis, hypoglycemia - metabolic acidosis, thought possibly due to NS, normal sugars and no DM so not DKA. Lactate also normal. Developed mild hypoglycemia today, along with NAGMA lethargy will add AM cortisol for possible rossy's disease. - Normal saline held. Change to fluids noted above given hypoglycemia - Check ABG. Code status: DNR as discussed with the patient who identifies her daughter Irma as her surrogate and POA. Dispo: inpatient, likely home vs SNF, will need to improve with encephalopathy to see how she can tolerate PT/OT. Time Spent With Patient Critical Care time: I spent a total of [] minutes of critical care time on this patient's care today; this time is exclusive of procedural time.
[2022-09-27] MEDS: DEXTROSE 5%-0.45% NS 1,000 ML 84 ML IV (15:53)
[2022-09-27] MEDS: DEXTROSE 50 % IN WATER 25 GM/50 ML SYRINGE IV (15:53)
[2022-09-27] MEDS: LORazepam 2 MG/ML INJ 1 MG IV (16:01)
[2022-09-27 17:39] LABS: Fractionated Inspired Oxygen 32; HCO3 ABG 15 mmol/L (22-26); Oxygen Saturation ABG 95 % (95-100); PO2 ABG 77 mmHg (80-100); TCO2 ABG 16 mmol/L (21-31); pH ABG 7.34 (7.35-7.45)
[2022-09-27] MEDS: METOPROLOL TARTRATE 5 MG/5 ML INJ IV (17:39)
[2022-09-28] VITALS (12 sets, daily range): BP systolic 100–123; BP diastolic 55–69; PULSE 77–115; RESP 12–22; TEMP 36.3–37.3; O2SAT 93–96
[2022-09-28] MEDS: HYDROMORPHONE 0.5 MG INJ IV ×3 (01:21→13:19)
[2022-09-28] MEDS: DEXTROSE 5%-0.45% NS 1,000 ML 84 ML IV ×2 (02:30→14:46)
[2022-09-28] MEDS: PIPERACILLIN/TAZO 3.375 GM in SODIUM CHLORIDE 0.9% 100 ML IV ×3 (04:02→19:53)
[2022-09-28 05:54] LABS: Cortisol AM (Before 10AM) 48.2 ug/dL (4.46-22.7)
--- NOTE | 2022-09-28 06:37 | PC.NURSE ---
Crew Caller Note-Patient remains lethargic and unable to take PO. Medicated with IV Dilaudid for FLACC 5. Placed on HHFNC at 2130 to keep SpO2 >92%, set at 30%/50L, has upper airway congestion and exp wheezes, small amount of thick white sputum oral sx. ST 100-110. 225ml dark tea UOP from [place].
--- NOTE | 2022-09-28 08:03 | DI.RAD.S_ITS ---
PROCEDURE: XR CHEST 1V INDICATIONS: worsened hypoxia TECHNIQUE: One view of the chest was acquired. COMPARISON: [facility], CR, XR CHEST 1V, 09/24/2022, 23:29. FINDINGS: Surgical changes and devices: Overlying monitoring leads. Lungs and pleura: Interval decrease in lung volume with further asymmetric elevation of the right hemidiaphragm. Interval development of diffuse, hazy alveolar opacity throughout the visible right lung and to lesser extent in the left mid lung. There is blunting of both costophrenic sulci. No pneumothorax. Mediastinum: The patient is moderately rotated. Given this, cardiomediastinal contour is stable. Bones and chest wall: Normal osseous structures. Visualization of distended small bowel loops in the upper abdomen. IMPRESSION: 1. Low lung volumes and interval development of diffuse bilateral alveolar opacities, right much worse than left. 2. Probable small bilateral pleural effusions. 3. Air-filled distended small bowel loops may contribute to low lung volumes. Clinical correlation and possible x-ray or CT of the abdomen is recommended. Dictated by: Malu Martinez M.D. on 09/28/2022 at 8:26 Approved by: Malu Martinez M.D. on 09/28/2022 at 8:29
[2022-09-28 08:13] LABS: Add Manual Diff / Slide Review NO; Basophils Absolute Auto 0 /uL (0-100); Basophils Percent Auto 0.1 % (0-2); Eosinophils Absolute Auto 0 /uL (0-450); Hematocrit 35.8 % (36-46); Hemoglobin 11.5 g/dL (12.0-16.0); Lymphocytes Absolute Auto 600 /uL (1100-4500); Lymphocytes Percent Auto 5.2 % (25-40); Mean Corpuscular HGB Conc 32.2 % (30-36); Mean Corpuscular Hemoglobin 30.3 PG (26-34); Mean Corpuscular Volume 94.1 fL (80-100); Monocytes Absolute Auto 200 /uL (0-900); Monocytes Percent Auto 1.5 % (3-14); Neutrophils Absolute Auto 11300 /uL (1500-7000); Neutrophils Percent Auto 93.2 % (50-75); Platelet Count 330 X10^3/uL (150-400); Red Blood Cell Count 3.81 X10^6/uL (4.0-5.2); Red Cell Distribution Width 17.3 % (11.6-14.8); White Blood Cell Count 12.1 X10^3/uL (4.5-11.0)
[2022-09-28] MEDS: ENOXAPARIN 30 MG/0.3 ML SYRINGE SUBCUT (08:24)
--- NOTE | 2022-09-28 09:02 | DI.CT.S_ITS ---
PROCEDURE: CT CHEST ABD PEL WO CON INDICATIONS: hypoxia, abdominal distension TECHNIQUE: After the administration of oral contrast, 5 mm thick sections acquired from the lung apices to the symphysis pubis. 5 mm thick coronal and sagittal reformats acquired, with additional 7 mm coronal MIP reformats through the lungs. For radiation dose reduction, the following was used: automated exposure control, adjustment of mA and/or kV according to patient size. COMPARISON: [facility], CT, CT ABDOMEN PELVIS W CON, 09/22/2022, 13:39. [facility], CR, XR CHEST 1V, 09/28/2022, 8:00. FINDINGS: Image quality: Excellent. CHEST: Lungs and pleura: Near diffuse ground-glass opacity with interlobular septal thickening throughout the right lung. There is mucous filling the right bronchus intermedius and lower lobe bronchi. Low right lung volume, small to moderate right pleural effusion, and right lower lobe consolidation. There is also patchy ground-glass opacity in the left upper lobe mid lung. Minor left base atelectasis. No effusion. Mediastinum: Heart size is mildly enlarged. There is dense mitral annular calcification and moderate coronary artery calcification. Normal great vessel caliber and contour. No significant adenopathy. Chest wall: No axillary or supraclavicular adenopathy by size criteria. Thyroid gland contains a few punctate calcifications in the lower isthmus . ABDOMEN: Solid organs: Liver is normal in size. 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 Moderate extrahepatic biliary dilatation. No ductal calcification visible . Pancreas is normal in contours. Spleen is normal in size. Small lateral limb right adrenal adenoma. Mild thickening of the left adrenal gland. Both kidneys are normal in size, without hydronephrosis or nephrolithiasis. Bilateral renal cysts. No hydroureter. Peritoneum and bowel: There is a small amount of perisplenic and perihepatic ascites as well as free fluid in the pericolic gutters and central mesentery. There is worsening of small bowel dilatation from distal jejunal onward. There is tethering of small and large bowel loops in the mid central pelvis where there is a single focus of extraluminal gas and surrounding inflammation. There may be focal wall thickening at the proximal sigmoid colon which is contributing to a proximal colonic obstruction. There is no suspicious wall thinning, or definite pneumatosis in small or large bowel loops. Nodes and vessels: No retroperitoneal or mesenteric adenopathy by size criteria. Aorta demonstrates mild atherosclerotic calcification and normal caliber. Inferior vena cava is slightly decompressed. Miscellaneous: No ventral hernias. Moderate subcutaneous lower abdominal body wall anasarca. PELVIS: Genitourinary: Bladder wall thickness is normal. Miscellaneous: No inguinal hernias or adenopathy. Bones: No suspicious bone lesions. Mild compression fractures of L2 and L3. IMPRESSION: 1. Persistent and worsening bowel obstruction within inflammatory appearing transition point in the central pelvis where a small focus of extraluminal gas is noted. 2. There is no definite evidence of bowel ischemia at this point, however there has been worsening of intra-abdominal ascites since the prior study. 3. Development of bilateral but mainly right lung alveolar opacity, potentially due to aspiration. Mucous is seen within right bronchus intermedius and lower lobe bronchi. 4. Cardiomegaly with dense mitral annular calcification. 5. Decreased IVC caliber and anasarca suggesting 3rd spacing. 6. Discussed with Dr. Michel at 958 hours. Dictated by: Malu Martinez M.D. on 09/28/2022 at 9:39 Approved by: Malu Martinez M.D. on 09/28/2022 at 10:05
[2022-09-28 09:10] LABS: Ammonia (NH3) < 9 umol/L (9-30)
[2022-09-28 09:21] LABS: Alanine Aminotransferase 88 IU/L (<35); Albumin Globulin Ratio 0.7 (1.0-2.8); Alkaline Phosphatase 216 U/L (38-126); Aspartate Aminotransferase 91 IU/L (14-36); BUN Creatinine Ratio 29.8 (6-22); Bilirubin Total 0.6 mg/dL (0.2-1.3); Blood Urea Nitrogen 39 mg/dL (7-17); Calcium 7.4 mg/dL (8.4-10.2); Carbon Dioxide 16 mmol/L (22-32); Chloride 117 mmol/L (98-107); Estimated Glomerular Filt Rate 44 mL/min (>60); Glucose 128 mg/dL (80-110); HEMOLYSIS < 15 (0-50); Magnesium 1.9 mg/dL (1.6-2.3); Phosphorous 4.5 mg/dL (2.8-4.1); Potassium 3.7 mmol/L (3.4-5.1); Sodium 141 mmol/L (137-145)
--- NOTE | 2022-09-28 12:06 | PT-IP ANOTE ---
per rounds meeting: pt is medically declining and might require surgery and to d/c PT at this time.
--- NOTE | 2022-09-28 12:09 | PT.IPTN ---
Current Diagnoses Partial intestinal obstruction, unspecified as to cause (09/22/22) Procedure and treatment not carried out because of other contraindication (09/22/22) Physical Therapy Treatment Note M2 PT-IP Current Condition Start: 09/26/22 13:16 Freq: NEEDED Status: Active Protocol: Document 09/26/22 11:50 AB (Rec: 09/26/22 13:29 AB [id number]) Physical Therapy Current Condition Current Condition Evaluation Date 09/26/22 Treatment Diagnosis colitis; difficulty in walking Onset Date 09/22/22 M3 PT-IP Subjective Start: 09/26/22 13:16 Freq: NEEDED Status: Active Protocol: Document 09/28/22 12:09 AB (Rec: 09/28/22 12:09 AB [id number]) Subjective Physical Therapy Visit Type Type Administrative Note Notes per rounds meeting: pt is medically declining and may require surgery and to d/c PT at this time. M7 PT-IP Assessment and Plan Start: 09/26/22 13:16 Freq: NEEDED Status: Active Protocol: Document 09/28/22 12:09 AB (Rec: 09/28/22 12:09 AB [id number]) PT Summary Assessment and Plan Frequency of Treatment Frequency Of Treatment Discharge
--- NOTE | 2022-09-28 13:45 | P.CONS_ITS ---
History of Present Illness Consult details Date Patient Seen: 09/28/22 Time Patient Seen: 13:45 Chief complaint: Abdominal Pain Reason for consult: colonic obstruction Requesting provider: Thanh Michel Narrative: Patient is demented and confused. Spoke with daughter at bedside. Case reviewed and colonic obstruction worsening, aspiration pneumonia, over all decline. It is my experience that she will not do well with surgery and given her poor quality of life, she should go to comfort care. Daughter agrees w plan. Meds Home Medications and Allergies Home Medications Medication Instructions Recorded Confirmed Type oxycodone-acetaminophen 5 mg-325 1 tab PO Q6H PRN pain #10 tabs 09/13/22 09/23/22 Rx mg tablet Allergies Allergy/AdvReac Type Severity Reaction Status Date / Time Penicillins Allergy Verified 09/22/22 13:20 Exam Vital Signs (past 8 hours): - 09/28/22 09:00 09/28/22 08:00 09/28/22 07:00 Temperature 97.4 F L Pulse Rate 94 H 99 H Respiratory Rate 14 15 Blood Pressure 106/55 L Pulse Oximetry 95 95 Oxygen Delivery Method Heated High Flow Heated High Flow Oxygen Flow Rate 30 Fraction of Inspired Oxygen 50 09/28/22 09:00 09/28/22 09:25 09/28/22 12:00 Temperature 98.1 F Pulse Rate 94 H 96 H 95 H Respiratory Rate 14 12 13 Blood Pressure 106/58 L 110/69 Pulse Oximetry 95 95 95 Oxygen Delivery Method Oximask Oxygen Flow Rate 6 6 Fraction of Inspired Oxygen Fraction of Inspired Oxygen 50 SaO2/FiO2 Ratio 190 Oxygen Delivery Method Oximask Oxygen Flow Rate 6 Objective Labs Result Diagrams: 09/28/22 04:14 09/28/22 04:14 Labs: Laboratory Results - last 24 hr 09/27/22 09/28/22 09/28/22 17:21 04:14 04:14 WBC 12.1 H RBC 3.81 L Hgb 11.5 L Hct 35.8 L MCV 94.1 MCH 30.3 MCHC 32.2 RDW 17.3 H Plt Count 330 Neut % (Auto) 93.2 H Lymph % (Auto) 5.2 L [place] % (Auto) 1.5 L Eos % (Auto) 0.0 L Baso % (Auto) 0.1 Neut # (Auto) 59147 H Lymph # (Auto) 600 L [place] # (Auto) 200 Eos # (Auto) 0 Baso # (Auto) 0 ABG pH 7.34 L ABG pCO2 28.0 L ABG pO2 77 L ABG HCO3 15 L ABG Total CO2 16 L ABG O2 Saturation 95 ABG Base Excess -11.0 L FiO2 32 Sodium Potassium Chloride Carbon Dioxide BUN Creatinine Estimated GFR BUN/Creatinine Ratio Glucose Calcium Phosphorus Magnesium Total Bilirubin AST ALT Alkaline Phosphatase Ammonia Total Protein Albumin Globulin Albumin/Globulin Ratio Cortisol AM Sample 48.2 H 09/28/22 09/28/22 04:14 08:51 WBC RBC Hgb Hct MCV MCH MCHC RDW Plt Count Neut % (Auto) Lymph % (Auto) [place] % (Auto) Eos % (Auto) Baso % (Auto) Neut # (Auto) Lymph # (Auto) [place] # (Auto) Eos # (Auto) Baso # (Auto) ABG pH ABG pCO2 ABG pO2 ABG HCO3 ABG Total CO2 ABG O2 Saturation ABG Base Excess FiO2 Sodium 141 Potassium 3.7 Chloride 117 H Carbon Dioxide 16 L BUN 39 H Creatinine 1.31 H Estimated GFR 44 L BUN/Creatinine Ratio 29.8 H Glucose 128 H Calcium 7.4 L Phosphorus 4.5 H Magnesium 1.9 Total Bilirubin 0.6 AST 91 H ALT 88 H Alkaline Phosphatase 216 H Ammonia < 9 L Total Protein 5.0 L Albumin 2.0 L Globulin 3.0 Albumin/Globulin Ratio 0.7 L Cortisol AM Sample PFS Medical History Tobacco dependence Surgical History No history of previous surgery Family History Father Melanoma Mother Medical history unknown Social History household members: children Tobacco & Substance Use Smoking Status: Former smoker Assessment & Plan Assessment & Plan narrative: colonic obstruction Dementia failure to thrive pneumonia COVID-19 COVID-19 status: Negative Time Spent With Patient Critical Care time: I spent a total of [] minutes of critical care time on this patient's care today; this time is exclusive of procedural time.
--- NOTE | 2022-09-28 14:33 | CM.DPC ---
Discharge plan continued: COURT spoke with Dr. Michel who stated the family is not going to pursue surgical interventions at this time and want to start Hospice process. Cm faxed referral and called hospice [facility] the spoke with sonny who stated she will contact the daughter later today or tomorrow to get the process started. She also stated she will get the referral process started. ALEKSANDRA vince will fax off Referral to Hospice of the . CM team will follow up with patients daughter to determine what equipment will be needed and what will be the next steps once the daughter has had some time to process the new status of her mother. Hoa Caba RNindustrial arts public school teacher
[2022-09-28] MEDS: SCOPOLAMINE 1 PATCH TOP (14:47)
[2022-09-28] MEDS: MORPHINE 2 MG/ML INJ IV ×3 (15:18→20:04)
--- NOTE | 2022-09-28 15:58 | P.PN_ITS ---
Subjective Subjective Date Patient Seen: 09/28/22 Interval history: 72 year old female admitted with infectious colitis initially. She initially had improvement in symptoms, however over the last few days she has been cognitively declining. Overnight, she had worsening hypoxia requiring high flow nasal cannula and was minimally responsive. CXR showed opacification of her RLL and dilated loops of colon. CT C/A/P showed worsened colonic obstruction compared to previous with possible microperforation, as well as mucous plugging and probable bronchial obstruction in her right lung. Discussed with family, and surgical consultation was performed, daughter at [facility] ultimately decided to not to persue surgical interventions at this time. She will likely transition to full comfort, but wishes to continue fluids and antibiotics until discussion with other family members, but agress primary focus at this time should focus around comfort. Declines use of pressors or escalation of care. Exam Vital Signs (past 8 hours): - 09/28/22 09:00 09/28/22 08:00 09/28/22 09:00 Temperature 97.4 F L Pulse Rate 94 H 99 H 94 H Respiratory Rate 14 15 14 Blood Pressure 106/55 L 106/58 L Pulse Oximetry 95 95 95 Oxygen Delivery Method Heated High Flow Oxygen Flow Rate 30 Fraction of Inspired Oxygen 50 09/28/22 09:25 09/28/22 12:00 Temperature 98.1 F Pulse Rate 96 H 95 H Respiratory Rate 12 13 Blood Pressure 110/69 Pulse Oximetry 95 95 Oxygen Delivery Method Oximask Oxygen Flow Rate 6 6 Fraction of Inspired Oxygen Fraction of Inspired Oxygen 50 SaO2/FiO2 Ratio 190 Oxygen Delivery Method Oximask Oxygen Flow Rate 6 Narrative Exam Narrative: GENERAL: Thin elderly woman in no apparent distress, lethargic with slurred speech more than usual HEENT: No scleral icterus, dry Mucous membranes Neck: trachea midline, no lymphadenopathy. CV:RRR today no peripheral edema LUNGS: CTA b/l. No increased work of breathing. ABDOMEN: Soft, non-distended, non-tender NEURO: Nonfocal, normal strength throughout, difficult to discern based on lethargy. SKIN: Warm and dry Objective Labs Result Diagrams: 09/28/22 04:14 09/28/22 04:14 Labs: Laboratory Results - last 24 hr 09/27/22 09/28/22 09/28/22 17:21 04:14 04:14 WBC 12.1 H RBC 3.81 L Hgb 11.5 L Hct 35.8 L MCV 94.1 MCH 30.3 MCHC 32.2 RDW 17.3 H Plt Count 330 Neut % (Auto) 93.2 H Lymph % (Auto) 5.2 L Webb % (Auto) 1.5 L Eos % (Auto) 0.0 L Baso % (Auto) 0.1 Neut # (Auto) 07413 H Lymph # (Auto) 600 L Webb # (Auto) 200 Eos # (Auto) 0 Baso # (Auto) 0 ABG pH 7.34 L ABG pCO2 28.0 L ABG pO2 77 L ABG HCO3 15 L ABG Total CO2 16 L ABG O2 Saturation 95 ABG Base Excess -11.0 L FiO2 32 Sodium Potassium Chloride Carbon Dioxide BUN Creatinine Estimated GFR BUN/Creatinine Ratio Glucose Calcium Phosphorus Magnesium Total Bilirubin AST ALT Alkaline Phosphatase Ammonia Total Protein Albumin Globulin Albumin/Globulin Ratio Cortisol AM Sample 48.2 H 09/28/22 09/28/22 04:14 08:51 WBC RBC Hgb Hct MCV MCH MCHC RDW Plt Count Neut % (Auto) Lymph % (Auto) Webb % (Auto) Eos % (Auto) Baso % (Auto) Neut # (Auto) Lymph # (Auto) Webb # (Auto) Eos # (Auto) Baso # (Auto) ABG pH ABG pCO2 ABG pO2 ABG HCO3 ABG Total CO2 ABG O2 Saturation ABG Base Excess FiO2 Sodium 141 Potassium 3.7 Chloride 117 H Carbon Dioxide 16 L BUN 39 H Creatinine 1.31 H Estimated GFR 44 L BUN/Creatinine Ratio 29.8 H Glucose 128 H Calcium 7.4 L Phosphorus 4.5 H Magnesium 1.9 Total Bilirubin 0.6 AST 91 H ALT 88 H Alkaline Phosphatase 216 H Ammonia < 9 L Total Protein 5.0 L Albumin 2.0 L Globulin 3.0 Albumin/Globulin Ratio 0.7 L Cortisol AM Sample [facility] Medical History Tobacco dependence Surgical History No history of previous surgery Family History Father Melanoma Mother Medical history unknown Social History household members: children Smoking Status: Former smoker Assessment & Plan Assessment & Plan narrative: Shirley Hearn is admitted for infectious colitis, improving slowly with antibiotic therapy initially but progress has slowed and today worsened again. She was again found to have a colonic obstruction, worsened compared to prior with signs of microperforation. Family decided against any high risk surgical interventions, believing that patient would not want a colostomy bag and poor prognosis. Plan to continue antibiotics and fluids, pending discussion with additional family members regarding transition to full comfort. Sepsis secondary to Infectious colitis, acute and present on admission with ASHWIN and acute metabolic encephalopathy. Colonic obstruction Suspect secondary to malignancy. - Imaging study reported bowel wall thickening vs mass, repeat study today with persistent obstruction. Suspect malignancy. - General Surgery, consulted. Infectious Colitis, Zosyn and colonoscopy in the next 2 months recommended initially. - GI panel negative - MR stroke protocol ordered given increased lethargy and encephalopathy, which showed an old stroke but no acute findings. - With repeat CT abdomen performed on 09/28 for worsening distension, encephalopathy, showing persistent and worsened obstruction, surgery was discussed but family ultimately decided against surgical interventions. - Currently family wishes to continues fluids and antibiotics, they are under standing this will not likely be helpful, but wish to discuss with other family members before transitioning to full comfort measures, though at this time there is no escalation of care Afib with RVR - controlled overnight initially with amiodarone given hypotension. Then stopped amiodarone given LFT increase and rate was controlled. Improved with oral metoprolol which she was unable to tolerate. - continue oral metoprolol and beta mary. - TTE with EF of 40-45% with apical hypokinesis. - discussed with cardiology whom recommended stress testing prior to discharge, will not persue given goals of care. Acute systolic heart failure - may be failure due to afib with RVR, takotsubo, or ischemia based on TTE - started on beta mary and aspen inhibition, will stop - no volume overload initially, no indication for diuresis. Transaminitis - likely in setting of hypotension, continue to follow. 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 Discussed with surgery whom recommends outpatient follow up at this time. ASHWIN - likely in setting of hypotension and infection, improved Non-anion gap Acidosis, hypoglycemia - metabolic acidosis, thought possibly due to NS, normal sugars and no DM so not DKA. Lactate also normal. Developed mild hypoglycemia today, along with NAGMA lethargy added AM cortisol which was 48 and not indicative of cortisol deficiency. - Normal saline held. Changed to d5 1/2 NS for hypoglycemia Advanced Care Planning I spent 17 minutes involved in advanced care planning with patient's family coordinating the above care plan. Code status: DNR as discussed with the patient who identifies her daughter Irma as her surrogate and POA. Dispo: home with hospice if patient does not pass in the hospital due to current issues noted above. Time Spent With Patient Critical Care time: I spent a total of [] minutes of critical care time on this patient's care today; this time is exclusive of procedural time.
[2022-09-28] MEDS: SODIUM CHLORIDE 0.9% FLUSH 10 ML IV (20:09)
[2022-09-29] MEDS: MORPHINE 2 MG/ML INJ IV ×2 (01:14→10:10)
[2022-09-29] MEDS: PIPERACILLIN/TAZO 3.375 GM in SODIUM CHLORIDE 0.9% 100 ML IV ×2 (04:15→12:58)
[2022-09-29 08:00] VITALS: BP 100/64; PULSE 95; RESP 13; TEMP 36.2; O2SAT 96
[2022-09-29] MEDS: LORazepam 2 MG/ML INJ 1 MG IV (10:10)
[2022-09-29 11:46] VITALS: PULSE 101; O2SAT 97
[2022-09-29 12:00] VITALS: BP 107/64; PULSE 100; RESP 16; TEMP 36.2; O2SAT 97
--- NOTE | 2022-09-29 12:16 | CM.DPNOTE ---
Discharge Planning Note: Left VMs for daughter Irma, no return call. Spoke with Ida Alvarez. No equipment delivery until 10/02. We need to find out equipment needs for car at home. Plan: Follow up per abovel. Jacque Clay RN/DCP
--- NOTE | 2022-09-29 17:04 | P.PN_ITS ---
Subjective Subjective Date Patient Seen: 09/29/22 Time Patient Seen: 08:00 Interval history: Lethargic and minimally responsive Exam Vital Signs (past 8 hours): - 09/29/22 11:46 09/29/22 12:00 Temperature 97.2 F L Pulse Rate 101 H 100 H Respiratory Rate 16 Blood Pressure 107/64 Pulse Oximetry 97 97 Oxygen Delivery Method Oximask Oxygen Flow Rate 4 3 Fraction of Inspired Oxygen 32 Fraction of Inspired Oxygen 32 SaO2/FiO2 Ratio 303 Oxygen Delivery Method Oximask Oxygen Flow Rate 3 Narrative Exam Narrative: GENERAL: lethargic, minimally responsive CV: regular rate and rhythm LUNGS: coarse breath sounds bilaterally. ABDOMEN: Soft, non-distended, non-tender NEURO: Nonfocal, normal strength throughout, difficult to discern based on lethargy. SKIN: Warm and dry Objective Labs Result Diagrams: 09/28/22 04:14 09/28/22 04:14 [facility] Medical History Tobacco dependence Surgical History No history of previous surgery Family History Father Melanoma Mother Medical history unknown Social History household members: children Smoking Status: Former smoker Assessment & Plan Assessment & Plan narrative: Shirley Hearn is admitted for infectious colitis, improving slowly with antibiotic therapy initially but progress has slowed and today worsened again. She was again found to have a colonic obstruction, worsened compared to prior with signs of microperforation. Family decided against any high risk surgical interventions, believing that patient would not want a colostomy bag and poor prognosis. Plan to continue antibiotics and fluids, pending discussion with additional family members regarding transition to full comfort. Sepsis secondary to Infectious colitis, acute and present on admission with ASHWIN and acute metabolic encephalopathy. Colonic obstruction Suspect secondary to malignancy. - Imaging study reported bowel wall thickening vs mass, repeat study today with persistent obstruction. Suspect malignancy. - General Surgery, consulted. Infectious Colitis, Zosyn and colonoscopy in the next 2 months recommended initially. - GI panel negative - MR stroke protocol ordered given increased lethargy and encephalopathy, which showed an old stroke but no acute findings. - With repeat CT abdomen performed on 09/28 for worsening distension, encephalopathy, showing persistent and worsened obstruction, surgery was discussed but family ultimately decided against surgical interventions. - Currently family wishes to continues fluids and antibiotics, they are understanding this will not likely be helpful, but wish to discuss with other family members before transitioning to full comfort measures, though at this time there is no escalation of care Afib with RVR - controlled overnight initially with amiodarone given hypotension. Then stopped amiodarone given LFT increase and rate was controlled. Improved with oral metoprolol which she was unable to tolerate. - continue oral metoprolol and beta mary. - TTE with EF of 40-45% with apical hypokinesis. Acute systolic heart failure - may be failure due to afib with RVR, takotsubo, or ischemia based on TTE - started on beta mary and aspen inhibition, will stop - no volume overload initially, no indication for diuresis. 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 Lactate also normal. Developed mild hypoglycemia today, along with NAGMA lethargy added AM cortisol which was 48 and not indicative of cortisol deficiency. - Normal saline held. Changed to d5 1/2 NS for hypoglycemia Code status: DNR as discussed with the patient who identifies her daughter Irma as her surrogate and POA. Dispo: home with hospice if patient does not pass in the hospital due to current issues noted above. Time Spent With Patient Critical Care time: I spent a total of [] minutes of critical care time on this patient's care today; this time is exclusive of procedural time.
[2022-09-29 17:52] VITALS: BP 115/58; PULSE 98; RESP 28; TEMP 36.7; O2SAT 94
[2022-09-29 20:15] VITALS: BP 121/58; PULSE 107; RESP 15; TEMP 36.1; O2SAT 94
[2022-09-29] MEDS: SODIUM CHLORIDE 0.9% FLUSH 10 ML IV (20:17)
[2022-09-30 01:40] VITALS: PULSE 108; TEMP 36.7; O2SAT 94
--- NOTE | 2022-09-30 01:45 | PC.NURSE ---
Addendum entered by Eunice Chinchilla R.N. 09/30/22 06:01: HR has been in 120 range and has not improved after administration of IV Dilaudid so Ativan given at this time. RR 24. Original Note: Patient is non-responsive but no attempt to awaken since is now on comfort care with order to provide for uninterrupted sleep. Breath sounds with inspiratory/expiratory rhonchi throughout anteriorly. On oxygen via mask at 4L/min with sat of 94%. HR irregular with rate of 107. BT hypoactive and abdomen is distended and has not had a BM since 09/24. Using purewick for urine output as is otherwise incontinent of urine. Is being repositioned q2h using Chelsie bed tilt function so as not to disturb her. Has 2+ edema in bilateral LE. SCD's removed as order d'cd by MD on previous shift. FLACC score is 0. Fall risk is high and bed alarm is activated.
[2022-09-30] MEDS: HYDROMORPHONE 0.5 MG INJ 1 MG IV ×3 (04:53→16:55)
[2022-09-30] MEDS: LORazepam 2 MG/ML INJ 1 MG IV ×2 (05:56→16:55)
[2022-09-30 08:00] VITALS: TEMP 36
[2022-09-30 09:00] VITALS: O2SAT 94
[2022-09-30 12:00] VITALS: BP 138/72; PULSE 118; RESP 28; TEMP 35.8; O2SAT 89
[2022-09-30] MEDS: ONDANSETRON 4 MG/2 ML INJ IV (16:54)
--- NOTE | 2022-09-30 17:38 | PM.PN.1 ---
Subjective Subjective Date Patient Seen: 09/30/22 Time Patient Seen: 08:00 Interval history: Discussion was had yesterday with daughter who confirmed goals are to focus on patient comfort. She appears tachypneic but otherwise comfortable. Exam Vital Signs (past 8 hours): - 09/30/22 12:00 Temperature 96.4 F L Pulse Rate 118 H Respiratory Rate 28 H Blood Pressure 138/72 Pulse Oximetry 89 L Oxygen Flow Rate 4 Fraction of Inspired Oxygen 32 SaO2/FiO2 Ratio 303 Oxygen Delivery Method Simple Mask Oxygen Flow Rate 4 Narrative Exam Narrative: GENERAL: lethargic, minimally responsive CV: regular rate and rhythm LUNGS: coarse breath sounds bilaterally. NEURO: obtunded Objective Labs Result Diagrams: 09/28/22 04:14 09/28/22 04:14 [facility] Medical History Tobacco dependence Surgical History No history of previous surgery Family History Father Melanoma Mother Medical history unknown Social History household members: children Smoking Status: Former smoker Assessment & Plan Assessment & Plan narrative: After discussion was had with daughter on 09/29, patient was made goals of care full comfort care, and medical orders now reflect this. Expect her to within a short time period. Sepsis secondary to Infectious colitis, acute and present on admission with ASHWIN and acute metabolic encephalopathy. Colonic obstruction Suspect secondary to malignancy. - Imaging study reported bowel wall thickening vs mass, repeat study today with persistent obstruction. Suspect malignancy. - General Surgery, consulted. Infectious Colitis, Zosyn and colonoscopy in the next 2 months recommended initially. - GI panel negative - MR stroke protocol ordered given increased lethargy and encephalopathy, which showed an old stroke but no acute findings. - With repeat CT abdomen performed on 09/28 for worsening distension, encephalopathy, showing persistent and worsened obstruction, surgery was discussed but family ultimately decided against surgical interventions. - Currently family wishes to continues fluids and antibiotics, they are understanding this will not likely be helpful, but wish to discuss with other family members before transitioning to full comfort measures, though at this time there is no escalation of care Afib with RVR - controlled overnight initially with amiodarone given hypotension. Then stopped amiodarone given LFT increase and rate was controlled. Improved with oral metoprolol which she was unable to tolerate. - continue oral metoprolol and beta mary. - TTE with EF of 40-45% with apical hypokinesis. Acute systolic heart failure - may be failure due to afib with RVR, takotsubo, or ischemia based on TTE - started on beta mary and aspen inhibition, will stop - no volume overload initially, no indication for diuresis. 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 Lactate also normal. Developed mild hypoglycemia today, along with NAGMA lethargy added AM cortisol which was 48 and not indicative of cortisol deficiency. - Normal saline held. Changed to d5 1/2 NS for hypoglycemia Code status: DNR as discussed with the patient who identifies her daughter Irma as her surrogate and POA. Dispo: home with hospice if patient does not pass in the hospital due to current issues noted above. Time Spent With Patient Critical Care time: I spent a total of [] minutes of critical care time on this patient's care today; this time is exclusive of procedural time.
--- NOTE | 2022-09-30 19:11 | PC.NURSE ---
Ex spouse called from room saying his had . Entered room. No heart beat. No resp. no vital signs. Had already spoke with family earlier and Irma and family had been in to give their final respects. home will [place] [facility] [address] in [place] Dr. Capellan called and may release remains to home when ex-spouse is done paying his last respects. Irma also called at 1910 to make her aware pt had . [place] made aware pt had .
--- NOTE | 2022-09-30 21:26 | PM.DS.1 ---
History of Present Illness History of Present Illness Date Patient Seen: 09/22/22 Time Patient Seen: 20:00 Chief complaint: Abdominal Pain Narrative: Per admitting provider Shirley Hearn is a 72-year-old female with no stated chronic medical problems presented to the emergency department today with what she describes as weird symptoms of no appetite, diarrhea for 1 week. She states she has not been eating because she does not have an appetite but denies nausea or vomiting. She is a recent transplant from [facility] moving here to be with her daughter, stating that this is the best move she is ever made. She denies fevers sweats or chills although apparently told the ED provider that she had a low-grade fever, denies dysuria, constipation, numbing or tingling of her upper lower extremities. CT of the abdomen and pelvis reported segmental wall thickening involving the distal descending colon and the proximal sigmoid colon noting a few colonic diverticula, it also reported partial colonic obstruction with dilated proximal colon loops measuring 5.5 cm and multiple air-fluid levels in the ascending and transverse colon. Concluded that there was a question as to whether this is chronic diverticulitis/segmental colitis versus mass. Appendix is normal though the tip of the appendix is adjacent to the sigmoid colon and they noted mild stranding with the possibility that she might have a concomitant appendicitis. They also noted a ?porcelain ?gallbladder and a small amount of ascites. She is afebrile, blood pressure 132/81 heart rate 109 respiratory rate 22 oxygen saturation of 96% on room air she weighs 61.2 kg with a BMI of 24. She does have a mildly elevated white count of 15.4 platelet count 408 and a left shift of almost 14,000 BUN was 32 glucose 131 calcium 7.6 alk-phos 159 albumin 2.4 and lipase is low at 22. COVID-19 PCR is negative. Discharge Providers Provider Date of admission: 09/22/22 19:07 Discharge Date: 09/30/22 Primary care physician: Doctor Bety MD Consults: 09/22/22 19:04 Consult to Physician Routine Comment: Consulting Provider: Ean Reese Reason for consultation: partial colonic obstruction, colitis? Has provider been notified: Yes 09/26/22 08:44 Consult to Physical Therapy Evaluate & Treat Comment: Physician Instructions: Evaluate and Treat 09/28/22 10:29 Consult to General Surgery Routine Comment: Consulting Provider: Addie Ornelas Reason for consultation: worsening colonic obstruction 09/28/22 13:48 Consult to Hospice Referral Urgent Comment: 09/29/22 17:52 Consult to Hospice Referral Urgent Comment: Discharge provider: Washington Pollard MD Summary Hospital Course Discharge Diagnosis: 1. Sepsis secondary to infectious colitis 2. Bowel obstruction 3. ASHWIN 4. Acute metabolic encephalopathy 5. Afib with RVR 6. Dementia 7. Acute systolic heart failure Hospital Course: Ms. Hearn initially came in concerning for infectious cause of her abdominal pain. She wa sstarte on antibiotics. Ultimately despite this treatment she declined and became lethartic and encephalopathic. She had repeat CT scan showing the bowel obstruction, the etiology could not be ruled out as malignancy. Surgery was consulted and discussed with family who did not patient to undergo any surgery. They wished to focus on making her comfortable and she was a dnr/dni code status. She with family nearby, time of 1909. Exam Vital Signs (past 8 hours): Fraction of Inspired Oxygen 32 SaO2/FiO2 Ratio 293 Oxygen Delivery Method Oximask Oxygen Flow Rate 4 Narrative Exam Narrative: Objective Labs Result Diagrams: 09/28/22 04:14 09/28/22 04:14 [facility] Medical History Tobacco dependence Surgical History No history of previous surgery Family History Father Melanoma Mother Medical history unknown Social History household members: children Smoking Status: Former smoker Discharge Plan Discharge Plan Patient Disposition: Discharge orders & Medications Prescriptions: No Action oxycodone-acetaminophen 5-325 mg tablet 1 tab PO Q6H PRN (Reason: pain) Qty: 10 0RF Follow up/Referrals: Doctor Albert MD [Primary Care Provider] - Discharge Data Primary Care Provider: Doctor Bety
== END 2022-09-30 23:15 | disposition expired | DRG 391 ==
LOC: ED 13:32 → AC 23:19 → ICU 09-25 07:48 → AC 09-25 07:50
PROVIDERS: Internal Medicine; Nurse Practitioner Family; Admitting Provider Family Medicine; Emergency Provider Emergency Medicine; Visit Provider Family Medicine
DX: A09 Infectious gastroenteritis and colitis, unspecified (principal); A41.9 Sepsis, unspecified organism; I50.21 Acute systolic (congestive) heart failure; G93.41 Metabolic encephalopathy; R65.20 Severe sepsis without septic shock; K56.600 Partial intestinal obstruction, unspecified as to cause; E87.20 Acidosis, unspecified; I48.91 Unspecified atrial fibrillation; I95.9 Hypotension, unspecified; F03.90 Unspecified dementia, unspecified severity, without behavioral disturbance, psychotic disturbance, mood disturbance, and anxiety; E16.2 Hypoglycemia, unspecified; R09.02 Hypoxemia; Z51.5 Encounter for palliative care; Z87.891 Personal history of nicotine dependence; Z66 Do not resuscitate; Z20.822 Contact with and (suspected) exposure to COVID-19
CPT/HCPCS: 0241U; 36415; 36600; 70548; 70553; 71045; 71250; 74176; 74177; 76705; 80048; 80053; 82140; 82533; 82805; 82962; 83605; 83690; 83735; 84100; 84145; 84484; 85025; 85651; 86140; 87040; 87045; 87077; 87086; 87150; 87507; 87797; 87899; 93005; 93010; 93306; 94762; 96365; 96367; 96375; 97163; 97530; 99232; 99284; A9579; J0282; J0696; J1170; J1650; J2060; J2270; J2405; J2543